=== PATIENT | male | born 1975 | race Caucasian/White ===

== ENCOUNTER 2017-10-04 11:06 | Emergency (ER) | payer BC ==
--- OUTSIDE RECORDS SUMMARY | 2017-10-04 11:14 | XMS REPORT ---
:1975 Author Organization eClinicalWorks Care Team Providers Name Role Phone Roni Lino Provider Role Unavailable Allergies No Known Allergies Problems Problem Type Condition Code Onset Dates Condition Status Problem Primary hypersomnia F51.11 Active Problem Benign essential hypertension I10 Active Problem Tobacco use disorder F17.200 Active Problem Irritability and anger R45.4 Active Problem Left ventricular hypertrophy I51.7 Active Problem Generalized anxiety disorder F41.1 Active Problem Chest pain R07.9 Active Problem Cellulitis L03.90 Active Problem Malaise and fatigue R53.81 Active Problem Gastro-esophageal reflux disease K21.9 Active without esophagitis Assessment Mixed hyperlipidemia E78.2 Active Assessment Uncontrolled type 2 diabetes E11.65 Active mellitus without complication, without long-term current use of insulin Problem Uncontrolled type 2 diabetes E11.65 Active mellitus without complication, without long-term current use of insulin Problem Mixed hyperlipidemia E78.2 Active Medications Medication Code System Code Instructions Start End Date Status Dosage Date Lipitor [facility] 10837732260 20 MG Orally Once Active 1 tablet a day Janumet [facility] 18152620745 50-1000 MG Orally Active 1 tablet Twice a day with meals Jardiance [facility] 71403808171 10 MG Orally Once Active 1 tablet a day Results No Known Results Summary Purpose eClinicalWorks Submission
--- OUTSIDE RECORDS SUMMARY | 2017-10-04 11:14 | XMS REPORT ---
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 Active Problem Benign essential hypertension I10 Active Problem Tobacco use disorder F17.200 Active Problem Irritability and anger R45.4 Active Assessment Decreased libido R68.82 Active Problem Left ventricular hypertrophy I51.7 Active Problem Generalized anxiety disorder F41.1 Active Problem Chest pain R07.9 Active Problem Cellulitis L03.90 Active Problem Malaise and fatigue R53.81 Active Problem Gastro-esophageal reflux disease K21.9 Active without esophagitis Assessment Irritability and anger R45.4 Active Assessment Generalized anxiety disorder F41.1 Active Assessment Tobacco use disorder F17.200 Active Assessment Gastro-esophageal reflux disease K21.9 Active without esophagitis Assessment Uncontrolled type 2 diabetes E11.65 Active mellitus without complication, without long-term current use of insulin Assessment Encounter for preventative adult Z00.01 Active health care exam with abnormal findings Assessment Benign essential hypertension I10 Active Problem Uncontrolled type 2 diabetes E11.65 Active mellitus without complication, without long-term current use of insulin Assessment Mixed hyperlipidemia E78.2 Active Problem Mixed hyperlipidemia E78.2 Active Medications Medication Code Code Instructions Start End Status Dosage System Date Date Metoprolol [facility] 23611890802 50 MG Orally Active 1 tablet Tartrate Twice a day with food Duexis [facility] 65922308915 800-26.6 MG Active 1 tablet Orally Three times a day Sertraline HCl ND 34655507378 50 MG Orally August 28, Active Take 1/2 Once a day 2018 tab QHS x 1 week then 1 tab QHS Amlodipine [facility] 90373795856 5 MG Active TAKE 1 Besylate TABLET BY MOUTH DAILY Jardiance [facility] 01364514882 10 MG Orally Nov 26, Active 1 tablet Once a day 2017 Aspirin 81 [facility] 56544217761 81 MG Orally Active 1 tablet Once a day Lipitor [facility] 81317489535 20 MG Orally Active 1 tablet Once a day BusPIRone HCl [facility] 92786092639 5 MG Orally August 28, Active 1 tablet Twice a day 2017 Pantoprazole [facility] 65826959254 40 MG Active TAKE 1 Sodium TABLET BY MOUTH EVERY MORNING Aprumet [facility] 39031228118 50-1000 MG Active 1 tablet Orally Twice a with meals day Norvasc [facility] 83694006629 5 MG Orally Active 1 [facility] 35042297367 50-1000 MG Active 1 tablet Orally Twice a with meals day Lisinopril [facility] 07898545516 40 MG Active TAKE 1 TABLET BY MOUTH DAILY Metoprolol [facility] 15290571407 50 MG Active TAKE 1 Tartrate TABLET BY MOUTH TWICE DAILY Pantoprazole [facility] 02179812567 40 MG Orally Active 1 tablet Sodium Once a day Results No Known Results Summary Purpose eClinicalWorks Submission
--- OUTSIDE RECORDS SUMMARY | 2017-10-04 11:14 | XMS REPORT ---
:1975 Author Organization eClinicalWorks Care Team Providers Name Role Phone Holland Roni Provider Role Unavailable Allergies No Known Allergies [...] esophagitis Assessment Mixed hyperlipidemia E78.2 Active Assessment Gastro-esophageal reflux disease K21.9 Active without esophagitis Problem Uncontrolled type 2 diabetes E11.65 Active mellitus without complication, without long-term current use of insulin Assessment Benign essential hypertension I10 Active Problem Mixed hyperlipidemia E78.2 Active Medications Medication Code Code Instructions Start End Status Dosage System Date Date Norvasc [facility] 52461178645 5 MG Orally Once Active 1 tablet a day Lisinopril [facility] 26055136808 40 MG Orally Active TAKE 1 Once a day TABLET BY MOUTH DAILY Metoprolol [facility] 76755980059 50 MG Orally Active 1 tablet Tartrate Twice a day with food Pantoprazole [facility] 39335888593 40 MG Orally Active 1 tablet Sodium Once a day Results No Known Results Summary Purpose eClinicalWorks Submission
--- OUTSIDE RECORDS SUMMARY | 2017-10-04 11:15 | XMS REPORT ---
[...] Active Assessment Generalized anxiety disorder F41.1 Active Problem Uncontrolled type 2 diabetes E11.65 Active mellitus without complication, without long-term current use of insulin Problem Mixed hyperlipidemia E78.2 Active Medications Medication Code Code Instructions Start End Status Dosage System Date Date Pantoprazole [facility] 40086767047 40 MG Active TAKE 1 Sodium TABLET BY MOUTH EVERY MORNING Aspirin [address] [facility] 16406807301 81 MG Orally Active 1 tablet Once a day Jardiance [facility] 41966350455 10 MG Orally Active 1 tablet Once a day Lipitor [facility] [address]-22 20 MG Active 1 tablet Once a day Orally 30 days BusPIRone HCl [facility] 10447140716 5 MG Orally Inactive 1 tablet Twice a day Duexis [facility] 04033598806 800-26.6 MG Active 1 tablet Orally Three times a day Metoprolol [facility] 01662762185 50 MG Active TAKE 1 Tartrate TABLET BY MOUTH TWICE DAILY Sertraline HCl [facility] 69140342579 50 MG Orally Inactive Take 1/2 Once a day tab QHS x 1 week then 1 tab QHS Janumet [facility] 19023134006 50-1000 MG Active 1 tablet Orally Twice a with day meals Lisinopril [facility] 37894684535 40 MG Orally Active TAKE 1 Once a day TABLET BY MOUTH DAILY Escitalopram [facility] 07127328452 10 MG Orally October 01, Active 1 tablet Oxalate Once a day [address] [facility] 72784133222 5 MG Active TAKE 1 Besylate TABLET BY MOUTH DAILY Results No Known Results Summary Purpose eClinicalWorks Submission
[2017-10-04] MEDS ORDERED: LORazepam 2 MG/ML VIAL ONE (11:28)
[2017-10-04] MEDS ORDERED: NA CHLORIDE 0.9% 1,000 ML ONE (11:28)
--- NOTE | 2017-10-04 12:24 | RAD REPORT ---
EXAM DESCRIPTION: RAD - Chest Single View - 10/04/2017 12:17 pm CLINICAL HISTORY: CHEST PAIN Chest pain. COMPARISON: Chest Single View dated 11/11/2016 FINDINGS: Portable technique limits examination quality. The lungs are grossly clear. The heart is normal in size. No displaced fractures. IMPRESSION: No acute intrathoracic process suspected.
[2017-10-04 12:26] LABS: Absolute Lymphocytes (CBC) 1.9 K/uL (0.7-4.9); Absolute Monocytes 0.6 K/uL (0.1-1.3); Absolute Neutrophil 10.2 K/uL (1.8-8.0); Basophils % 0.6 % (0-1.3); Eosinophils % 0.2 % (0-4.4); Hematocrit 45.6 % (39.6-49.0); Lymphocytes % 14.6 % (15.3-44.8); MCH 30.4 pg (27.0-35.0); MCV 89.2 fL (80-100); MPV 7.7 fL (7.6-11.3); Monocytes % 4.5 % (3.3-12.3); RBC Red Blood Cell Count 5.11 M/uL (4.33-5.43)
[2017-10-04 12:31] LABS: Protime INR 1.02
[2017-10-04 12:50] LABS: Magnesium 2.2 mg/dL (1.8-2.4); Potassium 4.1 mmol/L (3.5-5.1)
--- NOTE | 2017-10-04 13:02 | ER ---
Nurse's Notes [facility] Name: Baldemar Lujan Age: 42 yrs Sex: Male : 1975 Arrival Date: 10/04/2017 Time: 11:10 Bed 17 Private MD: Roni Lino Diagnosis: Panic disorder [episodic paroxysmal anxiety] without agoraphobia Presentation: 10/04 11:12 Presenting complaint: Patient states: was driving and started feeling weak, heart sv fluttering, body hot, chest tightness that lasted for a little bit and went away. All these symptoms have occurred 4 times since they started around 0900 today. Pt reported that he took a 5 hour energy drink this morning and did not take his morning HTN medications til about 45 minutes ago. Transition of care: patient was not received from another setting of care. Onset of symptoms was October 04, 2017 at 09:00. Risk Assessment: Do you want to hurt yourself or someone else? Patient reports no desire to harm self or others. Care prior to arrival: None. 11:12 Method Of Arrival: Wheelchair sv 11:12 Acuity: PHYLLIS 3 sv Historical: - Allergies: 11:21 No Known Allergies; sv - Home Meds: 11:21 Lisinopril Oral [Active]; Jardiance oral oral [Active]; Aspirin Oral [Active]; Duexis sv oral oral [Active]; Metoprolol Tartrate Oral [Active]; amlodipine oral [Active]; Protonix Oral [Active]; Janumet oral oral [Active]; Lipitor Oral [Active]; - PMHx: 11:21 Hypertension; Diabetes - NIDDM; sv - PSHx: 11:21 None; sv - Immunization history:: Adult Immunizations up to date. - Social history:: Smoking status: Patient uses tobacco products, smokes one-half pack cigarettes per day, Patient uses alcohol, occasionally. - Ebola Screening: : No symptoms or risks identified at this time. Vital Signs: 11:21 BP 162 / 102; Pulse 68; Resp 20; Temp 97.3; Pulse Ox 96% ; Weight 127.01 kg; Height 6 sv ft. 2 in. (187.96 cm); 11:21 Body Mass Index 35.95 (127.01 kg, 187.96 cm) sv ED Course: 11:10 Patient arrived in ED. mr 11:10 Roni Lino DO is Private Physician. mr 11:12 Patient placed in an exam room, on a stretcher, on pulse oximetry. sv 11:13 Fortino Sorto PA is PHCP. jr8 11:13 Scotty Villar MD is Attending Physician. jr8 11:20 Triage completed. sv 11:22 Feliberto Eldridge, RN is Primary Nurse. sg 11:22 Arm band placed on right wrist. sv 11:44 Initial lab(s) drawn, by me, sent to lab. Inserted saline lock: 20 gauge in right mh5 antecubital area, using aseptic technique. Patient did not have IV access during this emergency room visit. Pressure dressing applied. 11:45 Patient has correct armband on for positive identification. Placed in gown. Bed in low mh5 position. Call light in reach. Side rails up X 1. Adult w/ patient. Warm blanket given. clinical research monitor on. Pulse ox on. NIBP on. 11:49 EKG done, by geotechnical engineering technician. reviewed by Fortino RAZA. at1 11:49 Inserted saline lock: 20 gauge in left antecubital area, using aseptic technique. sg 12:17 XRAY Chest (1 view) In Process Unspecified. EDMS 13:01 Roni Lino DO is Referral Physician. jr8 Administered Medications: 11:49 Drug: NS 0.9% 1000 ml Route: IV; Rate: 1000 ml; Site: left antecubital; sg 13:31 Follow up: Response: No adverse reaction; IV Status: Completed infusion; IV Intake: sg 990ml 11:49 Drug: Ativan 2 mg Route: IVP; Site: left antecubital; sg Intake: 13:31 IV: 990ml; Total: 990ml. sg Outcome: 13:01 Discharge ordered by . jr8 13:31 Patient left the ED. sg Signatures: Dispatcher [employer] EDWA Roula Kohli RN RN sv Gay, Steven, EDUAR RN Loreto Platt mr Fortino Sorto PA PA jrTeri dawn, supervisor ski production EKG [facility] Loreto Sinha [facility] Corrections: (The following items were deleted from the chart) 11:22 11:12 Patient placed in an exam room, on a stretcher, sv sv
--- NOTE | 2017-10-04 13:02 | EDPHYS ---
Physician Documentation [facility] Name: Baldemar Lujan Age: 42 yrs Sex: Male : 1975 Arrival Date: 10/04/2017 Time: 11:10 Bed 17 Private MD: [facility] ED Physician Scotty Villar HPI: 10/04 11:44 This 42 yrs old Male presents to ER via Wheelchair with complaints of jr8 Dizziness. 11:44 The patient presents with lightheadedness. Onset: The symptoms/episode began/occurred jr8 acutely, today. Context: occurred on a street or driveway, occurred while the patient was driving . Modifying factors: The symptoms are alleviated by nothing, the symptoms are aggravated by nothing. Associated signs and symptoms: Pertinent positives: sense of anxiety, hot flashes . Severity of symptoms: At their worst the symptoms were moderate in the emergency department the symptoms are unchanged. The patient has not experienced similar symptoms in the past. The patient has not recently seen a physician. Patient stated that he had a 5 hour energy drink this morning. Stated that he has had one before and had not done this in past. Cannot think of anything else different that would have caused this today. Stated that he is anxious, is having hot flashes, sweating, and palpitative feeling along with shortness of breath. Had recent change in medications for anxiety as well . Historical: - Allergies: 11:21 No Known Allergies; sv - Home Meds: 11:21 Lisinopril Oral [Active]; Jardiance oral oral [Active]; Aspirin Oral [Active]; Duexis sv oral oral [Active]; Metoprolol Tartrate Oral [Active]; amlodipine oral [Active]; Protonix Oral [Active]; Janumet oral oral [Active]; Lipitor Oral [Active]; - PMHx: 11:21 Hypertension; Diabetes - NIDDM; sv - PSHx: 11:21 None; sv - Immunization history:: Adult Immunizations up to date. - Social history:: Smoking status: Patient uses tobacco products, smokes one-half pack cigarettes per day, Patient uses alcohol, occasionally. - Ebola Screening: : No symptoms or risks identified at this time. ROS: 11:44 Eyes: Negative for injury, pain, redness, and discharge, ENT: Negative for injury, jr8 pain, and discharge, Neck: Negative for injury, pain, and swelling, Abdomen/GI: Negative for abdominal pain, nausea, vomiting, diarrhea, and constipation, Back: Negative for injury and pain, MS/Extremity: Negative for injury and deformity, Skin: Negative for injury, rash, and discoloration, Neuro: Negative for headache, weakness, numbness, tingling, and seizure. 11:44 Cardiovascular: Positive for palpitations, Negative for chest pain, edema, orthopnea, paroxysmal nocturnal dyspnea. 11:44 Respiratory: Positive for shortness of breath, Negative for cough, dyspnea on exertion, hemoptysis, orthopnea, pleurisy, sputum production, wheezing. 11:44 Psych: Positive for anxiety. jr8 Exam: 11:44 Eyes: Pupils equal round and reactive to light, extra-ocular motions intact. Lids and jr8 lashes normal. Conjunctiva and sclera are non-icteric and not injected. Cornea within normal limits. Periorbital areas with no swelling, redness, or edema. ENT: Nares patent. No nasal discharge, no septal abnormalities noted. Tympanic membranes are normal and external auditory canals are clear. Oropharynx with no redness, swelling, or masses, exudates, or evidence of obstruction, uvula midline. Mucous membranes moist. Neck: Trachea midline, no thyromegaly or masses palpated, and no cervical lymphadenopathy. Supple, full range of motion without nuchal rigidity, or vertebral point tenderness. No Meningismus. Cardiovascular: Regular rate and rhythm with a normal S1 and S2. No gallops, murmurs, or rubs. Normal PMI, no JVD. No pulse deficits. Respiratory: Lungs have equal breath sounds bilaterally, clear to auscultation and percussion. No rales, rhonchi or wheezes noted. No increased work of breathing, no retractions or nasal flaring. Abdomen/GI: Soft, non-tender, with normal bowel sounds. No distension or tympany. No guarding or rebound. No evidence of tenderness throughout. Back: No spinal tenderness. No costovertebral tenderness. Full range of motion. Skin: Warm, dry with normal turgor. Normal color with no rashes, no lesions, and no evidence of cellulitis. MS/ Extremity: Pulses equal, no cyanosis. Neurovascular intact. Full, normal range of motion. Neuro: Awake and alert, GCS 15, oriented to person, place, time, and situation. Cranial nerves II-XII grossly intact. Motor strength 5/5 in all extremities. Sensory grossly intact. Cerebellar exam normal. Normal gait. 11:44 Constitutional: The patient appears alert, awake, anxious, diaphoretic. Vital Signs: 11:21 BP 162 / 102; Pulse 68; Resp 20; Temp 97.3; Pulse Ox 96% ; Weight 127.01 kg; Height 6 sv ft. 2 in. (187.96 cm); 11:21 Body Mass Index 35.95 (127.01 kg, 187.96 cm) sv MDM: 11:13 Patient medically screened. 12:59 Data reviewed: vital signs, nurses notes, lab test result(s), EKG, radiologic studies, [facility] plain films, and as a result, I will discharge patient. Data interpreted: Pulse oximetry: on room air is 96 %. Interpretation: normal. Counseling: I had a detailed discussion with the patient and/or guardian regarding: the historical points, exam findings, and any diagnostic results supporting the discharge/admit diagnosis, lab results, radiology results, the need for outpatient follow up, a family practitioner, to return to the emergency department if symptoms worsen or persist or if there are any questions or concerns that arise at home. Response to treatment: the patient's symptoms have resolved after treatment. ED course: All symptoms resolved after the ativan. Explained to patient that his symptoms were compatible with acute panic attack. All other cardiac and other labs within normal limits. To f/u with his PCP. More then likely stimulated from the 5 hour energy drink he had today. Patient is good with this and will follow up . 10/04 11:24 Order name: Basic Metabolic Panel 10/04 11:24 Order name: CBC with Diff 10/04 11:24 Order name: Magnesium 10/04 11:24 Order name: PT-INR; Complete Time: 12:48 10/04 11:24 Order name: Troponin (emerg Dept Use Only); Complete Time: 12:59 10/04 11:24 Order name: Basic Metabolic Panel; Complete Time: 12:50 EDMS 10/04 11:24 Order name: XRAY Chest (1 view); Complete Time: 12:48 10/04 11:24 Order name: EKG; Complete Time: 11:24 [facility] 10/04 11:24 Order name: CBC with Automated Diff; Complete Time: 12:48 EDMS 10/04 11:24 Order name: Magnesium; Complete Time: 12:50 EDMS 10/04 12:59 Order name: Urine Dipstick--Ancillary (enter results) bd 10/04 13:00 Order name: Urine Dipstick-Ancillary; Complete Time: 13:18 EDMS 10/04 11:24 Order name: Cardiac monitoring; Complete Time: 11: [facility] 10/04 11:24 Order name: EKG - Nurse/Tech; Complete Time: 13: [facility] 10/04 11:24 Order name: IV Saline Lock; Complete Time: 11: [facility] 10/04 11:24 Order name: Labs collected and sent; Complete Time: : [facility] 10/04 11:24 Order name: O2 Per Protocol; Complete Time: : [facility] 10/04 11:24 Order name: O2 Sat Monitoring; Complete Time: : [facility] 10/04 11:24 Order name: Urine Dipstick-Ancillary (obtain specimen); Complete Time: : [facility] 10/04 11:52 Order name: Labs - recollect needed; Complete Time: 12:30 bd Administered Medications: 11:49 Drug: NS 0.9% 1000 ml Route: IV; Rate: 1000 ml; Site: left antecubital; sg 13:31 Follow up: Response: No adverse reaction; IV Status: Completed infusion; IV Intake: sg 990ml 11:49 Drug: Ativan 2 mg Route: IVP; Site: left antecubital; sg Disposition: 16:36 Co-signature as Attending Physician, Scotty Villar MD. rn Disposition: 10/04/17 13:01 Discharged to Home. Impression: Panic disorder [episodic paroxysmal anxiety] without agoraphobia. - Condition is Stable. - Discharge Instructions: Panic Attacks. - Prescriptions for Hydroxyzine HCl 50 mg Oral Tablet - take 1 tablet by ORAL route every 8 hours As needed; 20 tablet. - Medication Reconciliation Form, Thank You Letter, Antibiotic Education, Prescription Opioid Use form. - Follow up: Roni Lino DO; When: 2 - 3 days; Reason: Recheck today's complaints, Continuance of care, Re-evaluation by your physician. - Problem is new. - Symptoms are resolved. Signatures: Dispatcher [employer] EDMS Whitney Aviles Roula Rubin RN RN sv Gay, Steven, RN RN sg Nieto, Roman, MD MD rn Roszak, Josh, PA PA jr8 Corrections: (The following items were deleted from the chart) 13:31 13:01 10/04/2017 13:01 Discharged to Home. Impression: Panic disorder [episodic sg paroxysmal anxiety] without agoraphobia. Condition is Stable. Forms are Medication Reconciliation Form, Thank You Letter, Antibiotic Education, Prescription Opioid Use. Follow up: Roni Lino; When: 2 - 3 days; Reason: Recheck today's complaints, Continuance of care, Re-evaluation by your physician. Problem is new. Symptoms are resolved. jr8
[2017-10-04 13:05] LABS: Urine Blood NEGATIVE (NEG); Urine Glucose TRACE (NEG); Urine Protein NEGATIVE (NEG); Urine Specific Gravity <1.005 (1.005-1.030); Urine pH 6.5 (5.0-7.0)
[2017-10-04 14:04] VITALS: BP 162/102; TEMP 97.3; O2SAT 96
--- NOTE | 2017-10-04 17:32 | EKG ---
Test Date: 2017-10-04 Test Time: 11:45:15 Plate Put In Worker: CHRIS MEASUREMENT RESULTS: Intervals: Rate: 62 ID: [id number] QRSD: 92 QT: 390 QTc: 395 [place]: P: 19 ID: [id number] QRS: 39 T: 43 INTERPRETIVE STATEMENTS: Normal sinus rhythm Normal ECG Compared to ECG 11/11/2016 22:53:16 No significant changes Electronically Signed On 10-04-17 17:30:59 CDT by Aram Rodriguez
== END 2017-10-04 13:31 | disposition home or self-care (01) ==
LOC: ER 11:06
DX: F41.0 Panic disorder [episodic paroxysmal anxiety] (principal); I10 Essential (primary) hypertension; E11.9 Type 2 diabetes mellitus without complications; F17.210 Nicotine dependence, cigarettes, uncomplicated; Z79.82 Long term (current) use of aspirin
CPT/HCPCS: 36415; 71045; 80048; 81003; 83735; 84484; 85025; 85610; 93005; 96361; 96374; 99284; J7030

== ENCOUNTER 2018-01-06 09:02 | Emergency (ER) | payer BC ==
[2018-01-06] MEDS ORDERED: FAMOTIDINE 20 MG/2 ML VIAL IV ONE (09:33)
[2018-01-06] MEDS ORDERED: ASPIRIN 81 MG CHEWABLE TABLET ONE (09:33)
[2018-01-06] MEDS ORDERED: METOPROLOL TAR 50 MG TAB ONE (09:33)
[2018-01-06 09:47] LABS: Absolute Lymphocytes (CBC) 3.5 K/uL (0.7-4.9); Absolute Neutrophil 9.6 K/uL (1.8-8.0); Basophils % 0.5 % (0-1.3); Eosinophils % 1.1 % (0-4.4); Hematocrit 46.9 % (39.6-49.0); Lymphocytes % 24.6 % (15.3-44.8); MCH 32.6 pg (27.0-35.0); MCV 91.8 fL (80-100); MPV 7.7 fL (7.6-11.3); Monocytes % 6.9 % (3.3-12.3); RBC Red Blood Cell Count 5.11 M/uL (4.33-5.43)
[2018-01-06 09:48] LABS: Protime INR 0.96
--- NOTE | 2018-01-06 09:58 | RAD REPORT ---
EXAM DESCRIPTION: RAD - Chest Single View - 01/06/2018 9:53 am CLINICAL HISTORY: Left-sided chest pain COMPARISON: September 2017 TECHNIQUE: AP portable chest image was obtained 0928 hours . FINDINGS: Lungs are clear. Heart and vasculature are normal. No measurable pleural effusion and no p neumothorax. No gross bony abnormality seen. No acute aortic findings suspected. IMPRESSION: No acute cardiopulmonary process. No acute cardiopulmonary finding.
[2018-01-06 10:02] LABS: ALT/SGPT 49 U/L (12-78); AST/SGOT 20 U/L (15-37); Albumin 3.9 g/dL (3.4-5.0); Alkaline Phosphatase 76 U/L (45-117); BUN Blood Urea Nitrogen 15 mg/dL (7-18); Bicarbonate 27 mmol/L (21-32); Bilirubin Direct 0.1 mg/dL (0-0.2); Bilirubin Total 0.3 mg/dL (0.2-1.0); Glucose Level 134 mg/dL (74-106); Lipase 307 U/L (73-393); Magnesium 2.2 mg/dL (1.8-2.4); NT PRO-BNP 8 pg/mL (<125); Potassium 4.7 mmol/L (3.5-5.1); Protein, Total 7.3 g/dL (6.4-8.2); Sodium Level 139 mmol/L (136-145); Troponin (Emerg Dept Use Only) < 0.02 ng/mL (0.0-0.045)
--- NOTE | 2018-01-06 10:55 | RAD REPORT ---
EXAM DESCRIPTION: CT - Chest For Pe Angio - 01/06/2018 10:38 am CLINICAL HISTORY: Chest pain, dyspnea COMPARISON: Chest films same date TECHNIQUE: Dynamically enhanced 3 mm thick images of the chest were obtained during administration o f approximately 150mL Isovue 370 IV contrast. Coronal and oblique MIP reconstruction images were gene rated and reviewed. Exam utilizes a protocol to evaluate the pulmonary arterial tree. All CT scans are performed using dose optimization technique as appropriate and may include automated exposure control or mA/KV adjustment according to patient size. FINDINGS: No pulmonary emboli are identified. Far peripheral subsegmental branch assessment is limit ed by motion. Likelihood of pulmonary embolic disease is felt to be low. The aorta as imaged shows no acute or suspicious finding. No pericardial thickening or effusion. No infiltrate or mass in the lung parenchyma. No pleural effusion or pleural thickening. No mediastinal or hilar suspicious masses. No chest wall masses or abnormal axillary lymphadenopathy. Limited upper abdomen imaging shows fatty infiltration of a prominent sized liver. Only a portion of the liver is seen. IMPRESSION: No pulmonary emboli identified. No suspicious lung parenchymal process. Fatty infiltration of a partially imaged liver.
[2018-01-06] MEDS ORDERED: AZITHROMYCIN 250 MG TAB ONE (11:29)
[2018-01-06] MEDS ORDERED: CEFTRIAXONE/SWI 1gm 1 GM/10 ML SYR ONE (11:29)
--- NOTE | 2018-01-06 11:48 | EKG ---
Test Date: 2018-01-06 Test Time: 09:25:03 Patrol Police Sergeant: CHRIS MEASUREMENT RESULTS: Intervals: Rate: 70 MA: 136 QRSD: 100 QT: 376 QTc: 406 [place]: P: 42 MA: 136 QRS: 120 T: 101 INTERPRETIVE STATEMENTS: Normal sinus rhythm Right axis deviation Abnormal ECG Compared to ECG 10/04/2017 11:45:15 Right-axis deviation now present QRS axis change is likely due to arm lead reversal, recommend repeat ECG Electronically Signed On 01-06-18 11:48:07 CDT by Derik Araiza
--- NOTE | 2018-01-06 12:03 | ER ---
Nurse's Notes [facility] Name: Baldemar Lujan Age: 42 yrs Sex: Male : 1975 Arrival Date: 01/06/2018 Time: 09:05 Bed 6 Private MD: Roni Lino Diagnosis: Essential (primary) hypertension;Type 2 diabetes mellitus;Pleurisy;Dyspnea;Tobacco abuse counseling;Tobacco use;Bronchitis, not specified as acute or chronic Presentation: 01/06 09:07 Presenting complaint: Patient states: left-sided chest pain that began last night "when aa5 breathing in". Pt also reports SOB. Denies nausea, vomiting. 09:07 Transition of care: patient was not received from another setting of care. Onset of aa5 symptoms was December 2017. Risk Assessment: Do you want to hurt yourself or someone else? Patient reports no desire to harm self or others. Initial Sepsis Screen: Does the patient meet any 2 criteria? No. Patient's initial sepsis screen is negative. Does the patient have a suspected source of infection? No. Patient's initial sepsis screen is negative. Care prior to arrival: None. 09:07 Method Of Arrival: Ambulatory aa5 09:07 Acuity: PHYLLIS 3 aa5 Historical: - Allergies: 09:08 No Known Allergies; aa5 - Home Meds: 09:36 amlodipine oral [Active]; Aspirin Oral [Active]; Duexis Oral [Active]; Jardiance Oral hb [Active]; Lipitor Oral [Active]; lisinopril 40 mg Oral tab 1 tab once daily [Active]; Metoprolol Tartrate Oral [Active]; Protonix Oral [Active]; Metformin Oral [Active]; - PMHx: 09:08 Diabetes - NIDDM; Hypertension; aa5 - PSHx: 09:08 None; aa5 - Immunization history:: Adult Immunizations up to date. - Social history:: Smoking status: Patient uses tobacco products, smokes one pack cigarettes per day. - Ebola Screening: : No symptoms or risks identified at this time. - Family history:: not pertinent. Screenin:30 Abuse screen: Denies threats or abuse. Denies injuries from another. Nutritional hb screening: No deficits noted. Tuberculosis screening: No symptoms or risk factors identified. Fall Risk None identified. Assessment: 09:30 General: Appears in no apparent distress. Behavior is calm, cooperative. Pain: hb Complains of pain in anterior aspect of left upper chest Pain does not radiate. Pain currently is 2 out of 10 on a pain scale. at worst was 8 out of 10 on a pain scale. Quality of pain is described as sharp, stabbing, Pain began suddenly, 3 hours ago. Aggravated by deep breath. Neuro: Level of Consciousness is awake, alert, obeys commands, Oriented to person, place, time, situation. Cardiovascular: Heart tones S1 S2 present Capillary refill < 3 seconds Patient's skin is warm and dry. Respiratory: Airway is patent Trachea midline Respiratory effort is even, unlabored, Respiratory pattern is regular, symmetrical, Breath sounds are clear bilaterally. GI: No signs and/or symptoms were reported involving the gastrointestinal system. : No signs and/or symptoms were reported regarding the genitourinary system. EENT: No signs and/or symptoms were reported regarding the EENT system. Derm: Skin is intact, is healthy with good turgor, Skin is pink, warm \\T\\ dry. Musculoskeletal: No signs and/or symptoms reported regarding the musculoskeletal system. 10:30 Reassessment: Patient appears in no apparent distress at this time. No changes from hb previously documented assessment. Patient and/or family updated on plan of care and expected duration. Pain level reassessed. Patient is alert, oriented x 3, equal unlabored respirations, skin warm/dry/pink. 11:20 Reassessment: repeat trop sent. hb 11:27 Reassessment: Patient appears in no apparent distress at this time. No changes from hb previously documented assessment. Patient and/or family updated on plan of care and expected duration. Pain level reassessed. Patient is alert, oriented x 3, equal unlabored respirations, skin warm/dry/pink. Vital Signs: 09:10 BP 148 / 86; Pulse 71; Resp 18 S; Temp 97.8(O); Pulse Ox 96% on R/A; Weight 127.01 kg aa5 (R); Height 6 ft. 2 in. (187.96 cm) (R); Pain 6/10; 10:00 BP 129 / 82; Pulse 66; Resp 15; Pulse Ox 100% on R/A; hb 11:15 BP 128 / 77; Pulse 77; Resp 15; Pulse Ox 98% on R/A; hb 09:10 Body Mass Index 35.95 (127.01 kg, 187.96 cm) aa5 ED Course: 09:05 Patient arrived in ED. mr 09:06 Roni Lino DO is Private Physician. mr 09:07 Arm band placed on Patient placed in an exam room, on a stretcher. aa5 09:15 Rolly Daugherty MD is Attending Physician. scarlett 09:16 Triage completed. aa5 09:19 Juanita Booth, RN is Primary Nurse. hb 09:25 Missed attempt(s): 20 gauge in right antecubital area. Bleeding controlled, band aid hb applied, catheter tip intact. 09:30 Patient has correct armband on for positive identification. Placed in gown. Bed in low hb position. Call light in reach. Side rails up X 1. brick siding applicator on. Pulse ox on. NIBP on. 09:30 Patient maintains SpO2 saturation greater than 95% on room air. hb 09:32 Inserted saline lock: 20 gauge in left antecubital area, using aseptic technique. Blood hb collected. 09:39 X-ray completed. Portable x-ray completed in exam room. Patient tolerated procedure ml well. 09:41 XRAY Chest (1 view) In Process Unspecified. EDMS 10:34 CT completed. Patient tolerated procedure well. Patient moved to CT via stretcher. sj Patient moved back from CT. 10:39 CT Chest For PE Angio In Process Unspecified. EDMS 11:20 Troponin (emerg Dept Use Only): draw now Sent. hb 12:00 EKG done, by technical systems architect. reviewed by Rolly Daugherty MD Repeat EKG. at1 12:02 Roni Lino DO is Referral Physician. scarlett 12:02 Aram Rodriguez MD is Referral Physician. scarlett 12:30 No provider procedures requiring assistance completed. IV discontinued, intact, hb bleeding controlled, No redness/swelling at site. Pressure dressing applied. Administered Medications: 09:32 Drug: Aspirin Chewable Tablet 324 mg Route: PO; tw2 10:35 Follow up: Response: No adverse reaction hb 09:32 Drug: Lopressor (metoprolol TARTRATE) 50 mg Route: PO; tw2 10:05 Follow up: Response: No adverse reaction; Blood pressure is lowered hb 09:35 Drug: Pepcid 20 mg Route: IVP; Site: left antecubital; tw2 10:00 Follow up: Response: No adverse reaction hb 11:26 Drug: Rocephin - (cefTRIAXone) 1 grams Route: IVPB; Infused Over: 30 mins; Site: left hb antecubital; 12:00 Follow up: Response: No adverse reaction; IV Status: Completed infusion hb 11:26 Drug: Zithromax 500 mg Route: PO; hb 12:00 Follow up: Response: No adverse reaction hb Outcome: 12:02 Discharge ordered by . scarlett 12:30 Discharged to home ambulatory, with significant other. hb 12:30 Condition: stable 12:30 Discharge instructions given to patient, family, Instructed on discharge instructions, follow up and referral plans. medication usage, Demonstrated understanding of instructions, follow-up care, medications, Prescriptions given X 2. 12:37 Patient left the ED. iw Signatures: Dispatcher [employer] EDMS Rolly Daugherty MD MD cha Rivera, Maria mr Gianluca, Tiffany Thomason, RN Ellen Christy Audri RN RN aa5 Teri Shah, linux network administrator EKG Tat1 Juanita Booth RN RN Ashlie Dueñas RN RN tw2
--- NOTE | 2018-01-06 12:03 | EDPHYS ---
Physician Documentation [facility] Name: Baldemar Lujan Age: 42 yrs Sex: Male : 1975 Arrival Date: 01/06/2018 Time: 09:05 Bed 6 Private MD: [facility] ED Physician Rolly Daugherty HPI: 01/06 10:21 This 42 yrs old Male presents to ER via Ambulatory with complaints of Chest scarlett Pain. 10:21 The patient or guardian reports chest pain that is located primarily in the substernal scarlett area. Onset: 1 day(s) ago. The pain does not radiate. Associated signs and symptoms: The patient has no apparent associated signs or symptoms. The chest pain is described as sharp. Duration: The patient or guardian reports multiple episodes, that are intermittent. Modifying factors: The symptoms are alleviated by nothing. the symptoms are aggravated by deep breath. Severity of pain: At its worst the pain was mild moderate in the emergency department the pain is unchanged. The patient has not experienced similar symptoms in the past. Historical: - Allergies: 09:08 No Known Allergies; aa5 - Home Meds: 09:36 amlodipine oral [Active]; Aspirin Oral [Active]; Duexis Oral [Active]; Jardiance Oral hb [Active]; Lipitor Oral [Active]; lisinopril 40 mg Oral tab 1 tab once daily [Active]; Metoprolol Tartrate Oral [Active]; Protonix Oral [Active]; Metformin Oral [Active]; - PMHx: 09:08 Diabetes - NIDDM; Hypertension; aa5 - PSHx: 09:08 None; aa5 - Immunization history:: Adult Immunizations up to date. - Social history:: Smoking status: Patient uses tobacco products, smokes one pack cigarettes per day. - Ebola Screening: : No symptoms or risks identified at this time. - Family history:: not pertinent. ROS: 10:21 Constitutional: Negative for fever, chills, and weight loss, Eyes: Negative for injury, scarlett pain, redness, and discharge, ENT: Negative for injury, pain, and discharge, Neck: Negative for injury, pain, and swelling, Cardiovascular: Negative for chest pain, palpitations, and edema, Respiratory: Negative for shortness of breath, cough, wheezing, and pleuritic chest pain, Abdomen/GI: Negative for abdominal pain, nausea, vomiting, diarrhea, and constipation, Back: Negative for injury and pain, : Negative for injury, bleeding, discharge, and swelling, MS/Extremity: Negative for injury and deformity, Skin: Negative for injury, rash, and discoloration, Neuro: Negative for headache, weakness, numbness, tingling, and seizure, Psych: Negative for depression, anxiety, suicide ideation, homicidal ideation, and hallucinations, Allergy/Immunology: Negative for hives, rash, and allergies, Endocrine: Negative for neck swelling, polydipsia, polyuria, polyphagia, and marked weight changes, Hematologic/Lymphatic: Negative for swollen nodes, abnormal bleeding, and unusual bruising. 10:21 MS/extremity: Negative for acute changes. Exam: 10:21 Constitutional: This is a well developed, well nourished patient who is awake, alert, scarlett and in no acute distress. Head/Face: Normocephalic, atraumatic. Eyes: Pupils equal round and reactive to light, extra-ocular motions intact. Lids and lashes normal. Conjunctiva and sclera are non-icteric and not injected. Cornea within normal limits. Periorbital areas with no swelling, redness, or edema. ENT: Nares patent. No nasal discharge, no septal abnormalities noted. Tympanic membranes are normal and external auditory canals are clear. Oropharynx with no redness, swelling, or masses, exudates, or evidence of obstruction, uvula midline. Mucous membranes moist. Neck: Trachea midline, no thyromegaly or masses palpated, and no cervical lymphadenopathy. Supple, full range of motion without nuchal rigidity, or vertebral point tenderness. No Meningismus. Chest/axilla: Normal chest wall appearance and motion. Nontender with no deformity. No lesions are appreciated. Cardiovascular: Regular rate and rhythm with a normal S1 and S2. No gallops, murmurs, or rubs. Normal PMI, no JVD. No pulse deficits. Respiratory: Lungs have equal breath sounds bilaterally, clear to auscultation and percussion. No rales, rhonchi or wheezes noted. No increased work of breathing, no retractions or nasal flaring. Abdomen/GI: Soft, non-tender, with normal bowel sounds. No distension or tympany. No guarding or rebound. No evidence of tenderness throughout. Back: No spinal tenderness. No costovertebral tenderness. Full range of motion. Skin: Warm, dry with normal turgor. Normal color with no rashes, no lesions, and no evidence of cellulitis. MS/ Extremity: Pulses equal, no cyanosis. Neurovascular intact. Full, normal range of motion. Neuro: Awake and alert, GCS 15, oriented to person, place, time, and situation. Cranial nerves II-XII grossly intact. Motor strength 5/5 in all extremities. Sensory grossly intact. Cerebellar exam normal. Normal gait. Psych: Awake, alert, with orientation to person, place and time. Behavior, mood, and affect are within normal limits. 10:21 Musculoskeletal/extremity: DVT Exam: No signs of deep vein thrombosis. no pain, no swelling, no tenderness, negative Homans' sign noted on exam, no appreciated bluish discoloration, no erythema, no increased warmth. 12:01 Musculoskeletal/extremity: no homans, no cords. no trauma, no stasis, no hc state. [facility] Vital Signs: 09:10 BP 148 / 86; Pulse 71; Resp 18 S; Temp 97.8(O); Pulse Ox 96% on R/A; Weight 127.01 kg aa5 (R); Height 6 ft. 2 in. (187.96 cm) (R); Pain 6/10; 10:00 BP 129 / 82; Pulse 66; Resp 15; Pulse Ox 100% on R/A; hb 11:15 BP 128 / 77; Pulse 77; Resp 15; Pulse Ox 98% on R/A; hb 09:10 Body Mass Index 35.95 (127.01 kg, 187.96 cm) aa5 MDM: 09:15 Patient medically screened. [facility] 10:23 Data reviewed: vital signs, nurses notes, lab test result(s), EKG, radiologic studies, [facility] CT scan, plain films. 01/06 09:24 Order name: Basic Metabolic Panel; Complete Time: 10:20 [facility] 01/06 09:24 Order name: CBC with Diff; Complete Time: 10:20 [facility] 01/06 09:24 Order name: LFT's; Complete Time: 10:20 [facility] 01/06 09:24 Order name: Magnesium; Complete Time: 10:20 [facility] 01/06 09:24 Order name: NT PRO-BNP; Complete Time: 10:20 [facility] 01/06 09:24 Order name: PT-INR; Complete Time: 10:20 [facility] 01/06 09:24 Order name: Troponin (emerg Dept Use Only); Complete Time: 10:20 [facility] 01/06 09:24 Order name: XRAY Chest (1 view); Complete Time: 10:20 [facility] 01/06 09:24 Order name: Lipase; Complete Time: 10:20 [facility] 01/06 10:20 Order name: Blood Culture Adult (2) [facility] 01/06 10:20 Order name: CT Chest For PE Angio; Complete Time: 11:01 [facility] 01/06 10:34 Order name: Urine Dipstick--Ancillary (enter results) 01/06 11:01 Order name: Troponin (emerg Dept Use Only): draw now; Complete Time: 12:00 [facility] 01/06 09:24 Order name: EKG; Complete Time: 09:25 [facility] 01/06 09:24 Order name: Cardiac monitoring; Complete Time: 10:38 [facility] 01/06 09:24 Order name: EKG - Nurse/Tech; Complete Time: 10:38 [facility] 01/06 09:24 Order name: IV Saline Lock; Complete Time: 10:38 [facility] 01/06 09:24 Order name: Labs collected and sent; Complete Time: 10:38 [facility] 01/06 09:24 Order name: O2 Per Protocol; Complete Time: 10:38 [facility] 01/06 09:24 Order name: O2 Sat Monitoring; Complete Time: 10:38 [facility] 01/06 09:24 Order name: Urine Dipstick-Ancillary (obtain specimen); Complete Time: 10:30 [facility] 01/06 11:34 Order name: EKG; Complete Time: 11:34 [facility] 01/06 11:34 Order name: EKG - Nurse/Tech; Complete Time: 12:08 [facility] Administered Medications: 09:32 Drug: Aspirin Chewable Tablet 324 mg Route: PO; tw2 10:35 Follow up: Response: No adverse reaction hb 09:32 Drug: Lopressor (metoprolol TARTRATE) 50 mg Route: PO; tw2 10:05 Follow up: Response: No adverse reaction; Blood pressure is lowered hb 09:35 Drug: Pepcid 20 mg Route: IVP; Site: left antecubital; tw2 10:00 Follow up: Response: No adverse reaction hb 11:26 Drug: Rocephin - (cefTRIAXone) 1 grams Route: IVPB; Infused Over: 30 mins; Site: left hb antecubital; 12:00 Follow up: Response: No adverse reaction; IV Status: Completed infusion hb 11:26 Drug: Zithromax 500 mg Route: PO; hb 12:00 Follow up: Response: No adverse reaction hb Disposition: 01/06/18 12:02 Discharged to Home. Impression: Essential (primary) hypertension, Type 2 diabetes mellitus, Pleurisy, Dyspnea, Tobacco abuse counseling, Tobacco use, Bronchitis, not specified as acute or chronic. - Condition is Stable. - Discharge Instructions: Type 2 Diabetes Mellitus, Diagnosis, Adult, Hypertension, Pleurisy, Steps to Quit Smoking, Smoking Hazards, Hypertension, Buvq-ft-Dnpm, Steps to Quit Smoking, Jjno-tu-Vaxk, How to Take Your Blood Pressure, Epag-ui-Swav, Aspirin and Your Heart, Pleurisy, Pzfe-zr-Mrml, Type 2 Diabetes Mellitus, Diagnosis, Adult, Cmbd-mb-Ncqf, Managing Your Hypertension. - Prescriptions for Ibuprofen 600 mg Oral Tablet - take 1 tablet by ORAL route every 8 hours As needed take with food; 21 tablet. Zithromax Z- Jae 250 mg Oral Tablet - take 1 tablet by ORAL route as directed for 5 days Day 1 - take two (2) tablets one time. Day 2, 3, 4 , 5 take one (1) tablet once daily.; 6 tablet. - Medication Reconciliation Form, Thank You Letter, Antibiotic Education, Prescription Opioid Use form. - Follow up: Roni Lino; When: 2 - 3 days; Reason: Recheck today's complaints, Continuance of care, Re-evaluation by your physician. Follow up: Aram Rodriguez; When: 2 - 3 days; Reason: Recheck today's complaints, Re-evaluation by your physician. - Problem is new. - Symptoms have improved. Signatures: Dispatcher [employer] EDMS Rolly Daugherty MD MD cha Williams, Irene, RN RN Marlin Cardona RN RN aa5 Juanita Booth RN RN hb Wise, Tara RN RN tw2 Corrections: (The following items were deleted from the chart) 12:37 12:02 01/06/2018 12:02 Discharged to Home. Impression: Essential (primary) iw hypertension; Type 2 diabetes mellitus; Pleurisy; Dyspnea; Tobacco abuse counseling; Tobacco use; Bronchitis, not specified as acute or chronic. Condition is Stable. Discharge Instructions: Type 2 Diabetes Mellitus, Diagnosis, Adult, Hypertension, Pleurisy, Steps to Quit Smoking, Smoking Hazards, Hypertension, Beyy-ug-Jhzq, Steps to Quit Smoking, Kjyj-nv-Hgrw, How to Take Your Blood Pressure, Rnjq-py-Uplz, Aspirin and Your Heart, Pleurisy, Osmr-np-Fntb, Type 2 Diabetes Mellitus, Diagnosis, Adult, Ejqt-vm-Gbky, Managing Your Hypertension. Prescriptions for Ibuprofen 600 mg Oral Tablet - take 1 tablet by ORAL route every 8 hours As needed take with food; 21 tablet, Zithromax Z-Jae 250 mg Oral Tablet - take 1 tablet by ORAL route as directed for 5 days Day 1 - take two (2) tablets one time. Day 2, 3, 4 , 5 take one (1) tablet once daily.; 6 tablet. and Forms are Medication Reconciliation Form, Thank You Letter, Antibiotic Education, Prescription Opioid Use. Follow up: Roni Lino; When: 2 - 3 days; Reason: Recheck today's complaints, Continuance of care, Re-evaluation by your physician. Follow up: Aram Rodriguez; When: 2 - 3 days; Reason: Recheck today's complaints, Re-evaluation by your physician. Problem is new. Symptoms have improved. scarlett
--- OUTSIDE RECORDS SUMMARY | 2018-01-06 12:37 | XMS REPORT ---
:1975 [facility] Team Providers Name Role Phone Roni [...] End Status Dosage System Date Date Metoprolol [facility] 04526845986 50 MG Orally Active 1 tablet Tartrate Twice a day with food Duexis [facility] 65749254381 800-26.6 MG Active 1 tablet Orally Three times a day Sertraline HCl ND 55866183590 50 MG Orally August 28, Active Take 1/2 Once a day 2018 tab QHS x 1 week then 1 tab QHS Amlodipine [facility] 14411666187 5 MG Active TAKE 1 Besylate TABLET BY MOUTH DAILY Jardiance [facility] 18083510704 10 MG Orally Nov 26, Active 1 tablet Once a day 2017 Aspirin 81 [facility] 38612648529 81 MG Orally Active 1 tablet Once a day Lipitor [facility] 27570368654 20 MG Orally Active 1 tablet Once a day BusPIRone HCl [facility] 74858596849 5 MG Orally August 28, Active 1 tablet Twice a day 2017 Pantoprazole [facility] 15049025245 40 MG Active TAKE 1 Sodium TABLET BY MOUTH EVERY MORNING Aprumet [facility] 66780250144 50-1000 MG Active 1 tablet Orally Twice a with meals day Norvasc [facility] 76059849651 5 MG Orally Active 1 tablet [facility] a day [facility] 50633438497 50-1000 MG Active 1 tablet Orally Twice a with meals day Lisinopril [facility] 11773753020 40 MG Active TAKE 1 TABLET BY MOUTH DAILY Metoprolol [facility] 58481175939 50 MG Active TAKE 1 Tartrate TABLET BY MOUTH TWICE DAILY Pantoprazole [facility] 15903836863 40 MG Orally Active 1 tablet Sodium Once a day Results No Known Results Summary Purpose [employer] Submission
--- OUTSIDE RECORDS SUMMARY | 2018-01-06 12:37 | XMS REPORT ---
:1975 Author Organization [employer] Care Team Providers Name Role Phone Roni Lino Provider Role Unavailable Allergies, Adverse Reactions, Alerts Substance Reaction Event Type N.K.D.A. Info Not Available Non Drug Allergy Problems Problem Type Condition Code Onset Dates Condition Status Problem Malaise and fatigue R53.81 Active Problem Chest pain R07.9 Active Problem Cellulitis L03.90 Active Problem Generalized anxiety disorder F41.1 Active Assessment Gastro-esophageal reflux disease K21.9 Active without esophagitis Problem Irritability and anger R45.4 Active Assessment Tobacco use disorder F17.200 Active Assessment Decreased libido R68.82 Active Problem Panic attack F41.0 Active Problem Primary hypersomnia F51.11 Active Problem Left ventricular hypertrophy I51.7 Active Problem Benign essential hypertension I10 Active Problem Tobacco use disorder F17.200 Active Assessment Irritability and anger R45.4 Active Assessment Generalized anxiety disorder F41.1 Active Assessment Benign essential hypertension I10 Active Assessment Panic attack F41.0 Active Problem Uncontrolled type 2 diabetes E11.65 Active mellitus without complication, without long-term current use of insulin Assessment Mixed hyperlipidemia E78.2 Active Problem Mixed hyperlipidemia E78.2 Active Assessment Uncontrolled type 2 diabetes E11.65 Active mellitus without complication, without long-term current use of insulin Problem Gastro-esophageal reflux disease K21.9 Active without esophagitis Medications Medication Code Code Instructions Start End Status Dosage System Date Date Metoprolol ND 02966891222 50 MG Active TAKE 1 Tartrate TABLET BY MOUTH TWICE DAILY Amlodipine ND 27360868531 5 MG Active TAKE 1 Besylate TABLET BY MOUTH DAILY Metformin HCl ND 69723643282 1000 MG Orally Dec 05, Active 1 tablet Twice a day 2017 with a meal Lisinopril ND 10452087573 40 MG PO Once a Active TAKE 1 day TABLET BY MOUTH DAILY Citalopram ND 02839076394 20 MG Orally Active 1 tablet Hydrobromide Once a day Pantoprazole ND 95820762454 40 MG Active TAKE 1 Sodium TABLET BY MOUTH EVERY MORNING Jardiance [facility] 07838521682 25 MG Orally Nov Active 1 tablet Once a day 2017umet [facility] 52548578564 50-1000 MG Inactive 1 tablet Orally Twice a with day meals Pantoprazole [facility] 44163667674 40 MG Orally Active 1 tablet Sodium Once a day Norvasc [facility] 66271371770 5 MG Orally Active 1 tablet Once a day Aspirin 81 [facility] 61867970101 81 MG Orally Active 1 tablet Once a day HydrOXYzine HCl [facility] 44932373206 50 MG Orally Active 1 tablet every 8 hrs PRN as needed Anxiety Metoprolol [facility] 96938857121 50 MG Orally Active 1 tablet Tartrate Twice a day with food Lipitor [facility] 12135534758 20 MG Orally Active 1 tablet Once a day Duexis [facility] 00144140516 800-26.6 MG Active 1 tablet Orally Three times a day [facility] 97591977628 50-1000 MG Active 1 tablet Orally Twice a with day meals Lipitor [facility] [address]-74 20 MG Active 1 tablet Once a day Orally 30 days Results No Known Results Summary Purpose eClinicalWorks Submission
--- OUTSIDE RECORDS SUMMARY | 2018-01-06 12:37 | XMS REPORT ---
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 Active Problem Left ventricular hypertrophy I51.7 Active Problem Benign essential hypertension I10 Active Problem Tobacco use disorder F17.200 Active Assessment Panic attack F41.0 Active Problem Uncontrolled type 2 diabetes E11.65 Active mellitus without complication, without long-term current use of insulin Assessment Irritability and anger R45.4 Active Problem Mixed hyperlipidemia E78.2 Active Assessment Generalized anxiety disorder F41.1 Active Problem Gastro-esophageal reflux disease K21.9 Active without esophagitis Medications Medication Code Code Instructions Start End Status Dosage System Date Date Aspirin 81 [facility] 21737190241 81 MG Orally Active 1 tablet Once a day Duexis [facility] 41948759688 800-26.6 MG Active 1 tablet Orally Three times a day Jardiance [facility] 76896230337 10 MG Orally Active 1 tablet Once a day Escitalopram [facility] 96054341885 10 MG Orally October 01, Active 1 tablet Oxalate Once a day 2017 HydrOXYzine HCl [facility] 30048884371 50 MG Orally November 04, Active 1 tablet every 8 hrs PRN 2018 as needed Anxiety Metoprolol [facility] 66596370771 50 MG Active TAKE 1 Tartrate TABLET BY MOUTH TWICE DAILY Amlodipine [facility] 50018207671 5 MG Active TAKE 1 Besylate TABLET BY MOUTH DAILY Lisinopril [facility] 88678940363 40 MG Orally Active TAKE 1 Once a day TABLET BY MOUTH DAILY Lipitor [facility] [address]-11 20 MG Active 1 tablet Once a day Orally 30 days Janumet [facility] 86379861449 50-1000 MG Active 1 tablet Orally Twice a with meals day Citalopram [facility] 00328766010 20 MG Orally November 04, Active 1 tablet Hydrobromide Once a day 2017 Pantoprazole [facility] 39159721413 40 MG Active TAKE 1 Sodium TABLET BY MOUTH EVERY MORNING Results No Known Results Summary Purpose eClinicalWorks Submission
--- OUTSIDE RECORDS SUMMARY | 2018-01-06 12:37 | XMS REPORT ---
[...] Start End Date Status Dosage Date Lipitor [facility] 01566006493 20 MG Orally Once Active 1 tablet a day Janumet [facility] 21214152823 50-1000 MG Orally Active 1 tablet Twice a day with meals Jardiance [facility] 53120343796 10 MG Orally Once Active 1 tablet a day Results No Known Results Summary Purpose eClinicalWorks Submission
--- OUTSIDE RECORDS SUMMARY | 2018-01-06 12:37 | XMS REPORT ---
[...] End Status Dosage System Date Date Norvasc [facility] 61099784630 5 MG Orally Once Active 1 tablet a day Lisinopril [facility] 90959595428 40 MG Orally Active TAKE 1 Once a day TABLET BY MOUTH DAILY Metoprolol [facility] 57587188358 50 MG Orally Active 1 tablet Tartrate Twice a day with food Pantoprazole [facility] 43913873776 40 MG Orally Active 1 tablet Sodium Once a day Results No Known Results Summary Purpose eClinicalWorks Submission
--- OUTSIDE RECORDS SUMMARY | 2018-01-06 12:37 | XMS REPORT ---
[...] End Status Dosage System Date Date Pantoprazole [facility] 77577190018 40 MG Active TAKE 1 Sodium TABLET BY MOUTH EVERY MORNING Aspirin 81 [facility] 08560411633 81 MG Orally Active 1 tablet Once a day Jardiance [facility] 21048807534 10 MG Orally Active 1 tablet Once a day Lipitor [facility] [address]-23 20 MG Active 1 tablet Once a day Orally 30 days BusPIRone HCl [facility] 71991113584 5 MG Orally Inactive 1 tablet Twice a day Duexis [facility] 32211034179 800-26.6 MG Active 1 tablet Orally Three times a day Metoprolol [facility] 60040648094 50 MG Active TAKE 1 Tartrate TABLET BY MOUTH TWICE DAILY Sertraline HCl [facility] 56054013562 50 MG Orally Inactive Take 1/2 Once a day tab QHS x 1 week then 1 tab QHS Janumet [facility] 19989139007 50-1000 MG Active 1 tablet Orally Twice a with day meals Lisinopril [facility] 57850769678 40 MG Orally Active TAKE 1 Once a day TABLET BY MOUTH DAILY Escitalopram [facility] 05498100258 10 MG Orally October 01, Active 1 tablet Oxalate Once a day 2017 Amlodipine [facility] 10444691735 5 MG Active TAKE 1 Besylate TABLET BY MOUTH DAILY Results No Known Results Summary Purpose eClinicalWorks Submission
[2018-01-06 12:48] VITALS: TEMP 97.8
[2018-01-06 12:50] VITALS: BP 128/77; O2SAT 98
[2018-01-06 14:02] LABS: Urine Blood TRACE (NEG); Urine Glucose 2+ (NEG); Urine Protein NEGATIVE (NEG); Urine Specific Gravity 1.015 (1.005-1.030); Urine pH 6.5 (5.0-7.0)
--- NOTE | 2018-01-06 15:40 | EKG ---
Test Date: 2018-01-06 Test Time: 11:58:18 Tour Guide: CHRIS MEASUREMENT RESULTS: Intervals: Rate: 56 AR: 148 QRSD: 92 QT: 428 QTc: 413 Holley: P: 40 AR: 148 QRS: 70 T: 54 INTERPRETIVE STATEMENTS: Sinus bradycardia Otherwise normal ECG Compared to ECG 01/06/2018 09:25:03 Sinus rhythm no longer present Right-axis deviation no longer present Electronically Signed On 01-06-18 15:39:37 CDT by Derik Araiza
== END 2018-01-06 12:37 | disposition home or self-care (01) ==
LOC: ER 09:02
DX: J40 Bronchitis, not specified as acute or chronic (principal); I10 Essential (primary) hypertension; R09.1 Pleurisy; R06.00 Dyspnea, unspecified; Z72.0 Tobacco use; Z71.6 Tobacco abuse counseling
CPT/HCPCS: 36415; 71045; 71275; 80048; 80076; 81003; 83690; 83735; 83880; 84484; 85025; 85610; 87040; 93005; 96365; 96375; 99285; J0696; Q9967

== ENCOUNTER 2018-01-13 21:10 | Emergency (ER) | payer BC ==
--- OUTSIDE RECORDS SUMMARY | 2018-01-13 21:24 | XMS REPORT ---
[...] End Status Dosage System Date Date Norvasc [facility] 33435113230 5 MG Orally Once Active 1 tablet a day Lisinopril [facility] 13059427776 40 MG Orally Active TAKE 1 Once a day TABLET BY MOUTH DAILY Metoprolol [facility] 89997595852 50 MG Orally Active 1 tablet Tartrate Twice a day with food Pantoprazole [facility] 44706494156 40 MG Orally Active 1 tablet Sodium Once a day Results No Known Results Summary Purpose eClinicalWorks Submission
--- OUTSIDE RECORDS SUMMARY | 2018-01-13 21:24 | XMS REPORT ---
[...] End Status Dosage System Date Date Pantoprazole [facility] 19069414530 40 MG Active TAKE 1 Sodium TABLET BY MOUTH EVERY MORNING Aspirin 81 [facility] 20950016090 81 MG Orally Active 1 tablet Once a day Jardiance [facility] 02160453986 10 MG Orally Active 1 tablet Once a day Lipitor [facility] [address]-42 20 MG Active 1 tablet Once a day Orally 30 days BusPIRone HCl [facility] 73677637308 5 MG Orally Inactive 1 tablet Twice a day Duexis [facility] 14194656387 800-26.6 MG Active 1 tablet Orally Three times a day Metoprolol [facility] 32732100307 50 MG Active TAKE 1 Tartrate TABLET BY MOUTH TWICE DAILY Sertraline HCl [facility] 43170296597 50 MG Orally Inactive Take 1/2 Once a day tab QHS x 1 week then 1 tab QHS Janumet [facility] 60128811751 50-1000 MG Active 1 tablet Orally Twice a with day meals Lisinopril [facility] 28007496453 40 MG Orally Active TAKE 1 Once a day TABLET BY MOUTH DAILY Escitalopram [facility] 81878167502 10 MG Orally October 01, Active 1 tablet Oxalate Once a day 2017 Amlodipine [facility] 86408453202 5 MG Active TAKE 1 Besylate TABLET BY MOUTH DAILY Results No Known Results Summary Purpose eClinicalWorks Submission
--- OUTSIDE RECORDS SUMMARY | 2018-01-13 21:24 | XMS REPORT ---
[...] Start End Date Status Dosage Date Lipitor [facility] 35338144185 20 MG Orally Once Active 1 tablet a day Janumet [facility] 87058385634 50-1000 MG Orally Active 1 tablet Twice a day with meals Jardiance [facility] 65206131021 10 MG Orally Once Active 1 tablet a day Results No Known Results Summary Purpose eClinicalWorks Submission
--- OUTSIDE RECORDS SUMMARY | 2018-01-13 21:24 | XMS REPORT ---
[...] Status Dosage System Date Date Metoprolol ND 56874708814 50 MG Active TAKE 1 Tartrate TABLET BY MOUTH TWICE DAILY Amlodipine ND 15283016160 5 MG Active TAKE 1 Besylate TABLET BY MOUTH DAILY Metformin HCl ND 91705306767 1000 MG Orally Dec 05, Active 1 tablet Twice a day 2017 with a meal Lisinopril ND 81080474978 40 MG PO Once a Active TAKE 1 day TABLET BY MOUTH DAILY Citalopram ND 29545172315 20 MG Orally Active 1 tablet Hydrobromide Once a day Pantoprazole ND 79830674705 40 MG Active TAKE 1 Sodium TABLET BY MOUTH EVERY MORNING Jardiance [facility] 79649276763 25 MG Orally Nov Active 1 tablet Once a day 2017umet [facility] 42753584487 50-1000 MG Inactive 1 tablet Orally Twice a with day meals Pantoprazole [facility] 68752518498 40 MG Orally Active 1 tablet Sodium Once a day Norvasc [facility] 94581750695 5 MG Orally Active 1 tablet Once a day Aspirin [address] [facility] 32028221187 81 MG Orally Active 1 tablet Once a day HydrOXYzine HCl [facility] 74285440669 50 MG Orally Active 1 tablet every 8 hrs PRN as needed Anxiety Metoprolol [facility] 25240655709 50 MG Orally Active 1 tablet Tartrate Twice a day with food Lipitor [facility] 88905624951 20 MG Orally Active 1 tablet Once a day Duexis [facility] 26737291209 800-26.6 MG Active 1 tablet Orally Three times a day [facility] 83432493467 50-1000 MG Active 1 tablet Orally Twice a with day meals Lipitor [facility] [address]-21 20 MG Active 1 tablet Once a day Orally 30 days Results No Known Results Summary Purpose eClinicalWorks Submission
--- OUTSIDE RECORDS SUMMARY | 2018-01-13 21:24 | XMS REPORT ---
:1975 Author Organization eClinicalWorks Care Team Providers Name Role Phone Holland Roni Provider Role Unavailable Allergies, Adverse Reactions, Alerts [...] Problem Tobacco use disorder F17.200 Active Assessment Tobacco use disorder F17.200 Active Problem Uncontrolled type 2 diabetes E11.65 Active mellitus without complication, without long-term current use of insulin Assessment Benign essential hypertension I10 Active Problem Mixed hyperlipidemia E78.2 Active Assessment Acute bronchitis, unspecified J20.9 Active organism Problem Gastro-esophageal reflux disease K21.9 Active without esophagitis Medications Medication Code Code Instructions Start End Status Dosage System Date Date Chantix [facility] 40942365594 0.5 MG X 11 & 1 Jan 07, Feb 06, Active as Starting Month MG X 42 Orally 2017 2017 directed Jae as directed Amlodipine [facility] 96211980165 5 MG Active TAKE 1 Besylate TABLET BY MOUTH DAILY Aspirin 81 [facility] 36559612187 81 MG Orally Active 1 tablet Once a day Lisinopril [facility] 63108677129 40 MG PO Once a Active TAKE 1 day TABLET BY MOUTH DAILY Lipitor [facility] 86838269022 20 MG Orally Active 1 tablet Once a day Chantix [facility] 59455539425 1 MG Orally Jan 07, Mar 08, Active 1 tablet Continuing Twice a day 2017 2018 Month Jae Metoprolol [facility] 94675963066 50 MG Orally Active 1 tablet Tartrate Twice a day with food Pantoprazole [facility] 97664759102 40 MG Active TAKE 1 Sodium TABLET BY MOUTH EVERY MORNING HydrOXYzine HCl [facility] 90183795923 50 MG Orally Active 1 tablet every 8 hrs PRN as needed Anxiety Metoprolol [facility] 60859377741 50 MG Orally Active 1 tablet Tartrate Twice a day with food Janumet [facility] 27345519387 50-1000 MG Active 1 tablet Orally Twice a with meals day Lipitor [facility] [address]-55 20 MG Active 1 tablet Once a day Orally 30 days Norvasc [facility] 16132868175 5 MG Orally Active 1 tablet Once a day Pantoprazole [facility] 07957729716 40 MG Orally Active 1 tablet Sodium Once a day Jardiance [facility] 60231455348 25 MG Orally Mar 05, Active 1 tablet Once a day 2017 Citalopram [facility] 11089609311 20 MG Orally Active 1 tablet Hydrobromide Once a day Metoprolol [facility] 12522229318 50 MG Active TAKE 1 Tartrate TABLET BY MOUTH TWICE DAILY Duexis [facility] 79235116400 800-26.6 MG Active 1 tablet Orally Three times a day Metformin HCl [facility] 52022801036 1000 MG Orally Dec 05, Active 1 tablet Twice a day 2017 with a meal Results No Known Results Summary Purpose eClinicalWorks Submission
--- OUTSIDE RECORDS SUMMARY | 2018-01-13 21:24 | XMS REPORT ---
:1975 [facility] [facility] Team Providers Name Role Phone Roni [...] End Status Dosage System Date Date Metoprolol [facility] 90021318892 50 MG Orally Active 1 tablet Tartrate Twice a day with food Duexis [facility] 98287726438 800-26.6 MG Active 1 tablet Orally Three times a day Sertraline HCl ND 93392658344 50 MG Orally August 28, Active Take 1/2 Once a day 2018 tab QHS x 1 week then 1 tab QHS Amlodipine [facility] 63966628848 5 MG Active TAKE 1 Besylate TABLET BY MOUTH DAILY Jardiance [facility] 94537405269 10 MG Orally Nov 26, Active 1 tablet Once a day 2017 Aspirin 81 [facility] 45639060101 81 MG Orally Active 1 tablet Once a day Lipitor [facility] 05887043056 20 MG Orally Active 1 tablet Once a day BusPIRone HCl [facility] 35739054595 5 MG Orally August 28, Active 1 tablet Twice a day 2017 Pantoprazole [facility] 30292467592 40 MG Active TAKE 1 Sodium TABLET BY MOUTH EVERY MORNING Aprumet [facility] 61239239278 50-1000 MG Active 1 tablet Orally Twice a with meals day Norvasc [facility] 06878962869 5 MG Orally Active 1 tablet [facility] 27093575057 50-1000 MG Active 1 tablet Orally Twice a with meals day Lisinopril [facility] 31972238887 40 MG Active TAKE 1 TABLET BY MOUTH DAILY Metoprolol [facility] 28775137281 50 MG Active TAKE 1 Tartrate TABLET BY MOUTH TWICE DAILY Pantoprazole [facility] 80918033878 40 MG Orally Active 1 tablet Sodium Once a day Results No Known Results Summary Purpose eClinicalWorks Submission
--- OUTSIDE RECORDS SUMMARY | 2018-01-13 21:24 | XMS REPORT ---
[...] Status Dosage System Date Date Aspirin [address] [facility] 68962735954 81 MG Orally Active 1 tablet Once a day Duexis [facility] 25985412441 800-26.6 MG Active 1 tablet Orally Three times a day Jardiance [facility] 26154680848 10 MG Orally Active 1 tablet Once a day Escitalopram [facility] 76300457437 10 MG Orally October 01, Active 1 tablet Oxalate Once a day [address] [facility] 53495552534 50 MG Orally November 04, Active 1 tablet every 8 hrs PRN 2018 as needed Anxiety Metoprolol [facility] 99701159315 50 MG Active TAKE 1 Tartrate TABLET BY MOUTH TWICE DAILY Amlodipine [facility] 55242143338 5 MG Active TAKE 1 Besylate TABLET BY MOUTH DAILY Lisinopril [facility] 67526709650 40 MG Orally Active TAKE 1 Once a day TABLET BY MOUTH DAILY Lipitor [facility] [address]-68 20 MG Active 1 tablet Once a day Orally [address] [facility] 29568847611 50-1000 MG Active 1 tablet Orally Twice a with meals day Citalopram [facility] 76506054042 20 MG Orally November 04, Active 1 tablet Hydrobromide Once a day [address] [facility] 50857538533 40 MG Active TAKE 1 Sodium TABLET BY MOUTH EVERY MORNING Results No Known Results Summary Purpose eClinicalWorks Submission
[2018-01-13] MEDS ORDERED: HYDROCODONE/APAP 10/325 TAB ONE (22:54)
[2018-01-13] MEDS ORDERED: HYDROCODONE/CHLORPHEN 5 ML/OSYR ONE (22:55)
--- NOTE | 2018-01-14 01:19 | ER ---
Nurse's Notes [facility] Name: Baldemar Lujan Age: 42 yrs Sex: Male : 1975 Arrival Date: 01/13/2018 Time: 21:13 Bed 16 Private MD: Diagnosis: Bronchitis, not specified as acute or chronic Presentation: 01/13 21:31 Presenting complaint: Patient states: Patient was seen in this ER last week and aj1 diagnosed with bronchitis. afternoon he coughed really hard and felt a pop in his left side that has gotten progressively worse over the weekend. Patient reports pain is exacerbated by cough, deep breathing, and movement. Reports trouble sleeping due to pain. Transition of care: patient was not received from another setting of care. Onset of symptoms was December 2017. Risk Assessment: Do you want to hurt yourself or someone else? Patient reports no desire to harm self or others. Initial Sepsis Screen: Does the patient meet any 2 criteria? No. Patient's initial sepsis screen is negative. Does the patient have a suspected source of infection? Yes: Productive cough/pneumonia. Care prior to arrival: None. 21:31 Method Of Arrival: Ambulatory [facility] 21:31 Acuity: PHYLLIS 4 aj1 Triage Assessment: 21:35 General: Appears in no apparent distress. uncomfortable, Behavior is calm, cooperative, aj1 appropriate for age. Pain: Pain currently is 5 out of 10 on a pain scale. at worst was 10 out of 10 on a pain scale. Neuro: Level of Consciousness is awake, alert, obeys commands, Oriented to person, place, time, situation. Cardiovascular: Patient's skin is warm and dry. Respiratory: Reports cough that is persistent Airway is patent Respiratory effort is even, unlabored, Respiratory pattern is regular, symmetrical. Historical: - Allergies: 21:35 No Known Allergies; aj1 - Home Meds: 21:35 amlodipine oral [Active]; Aspirin Oral [Active]; Duexis Oral [Active]; Janumet Oral aj1 [Active]; Jardiance Oral [Active]; Lipitor Oral [Active]; lisinopril 40 mg Oral tab 1 tab once daily [Active]; Metformin Oral [Active]; Metoprolol Tartrate Oral [Active]; Protonix Oral [Active]; - PMHx: 21:35 Diabetes - NIDDM; Hypertension; aj1 - Immunization history:: Flu vaccine is not up to date. - Social history:: Smoking status: Patient uses tobacco products, smokes one-half pack cigarettes per day. - Ebola Screening: : Patient denies travel to an Ebola-affected area in the 21 days before illness onset. Screenin:45 Abuse screen: Denies threats or abuse. Denies injuries from another. Nutritional aa1 screening: No deficits noted. Tuberculosis screening: No symptoms or risk factors identified. Fall Risk None identified. Assessment: 21:45 General: Appears in no apparent distress. comfortable, Behavior is calm, cooperative, aa1 appropriate for age. Pain: Complains of pain in diaphragm and left lateral anterior chest Quality of pain is described as sharp, shooting. Neuro: Level of Consciousness is awake, alert, obeys commands, Oriented to person, place, time, situation, Moves all extremities. Full function Gait is steady. Respiratory: Reports pain with cough pain with movement pain with respiration Airway is patent Respiratory effort is even, unlabored, Respiratory pattern is regular, symmetrical, Breath sounds are clear bilaterally. GI: No signs and/or symptoms were reported involving the gastrointestinal system. : No signs and/or symptoms were reported regarding the genitourinary system. EENT: No signs and/or symptoms were reported regarding the EENT system. Derm: Skin is intact, is healthy with good turgor, Skin is pink, warm \T\ dry. Musculoskeletal: Circulation, motion, and sensation intact. Capillary refill < 3 seconds, Range of motion: intact in all extremities. 22:10 Reassessment: Patient appears in no apparent distress at this time. Patient and/or aa1 family updated on plan of care and expected duration. Pain level reassessed. Patient is alert, oriented x 3, equal unlabored respirations, skin warm/dry/pink. Pt still awaiting provider initial assessment. 23:10 Reassessment: Patient appears in no apparent distress at this time. Patient and/or aa1 family updated on plan of care and expected duration. Pain level reassessed. Patient is alert, oriented x 3, equal unlabored respirations, skin warm/dry/pink. Awaiting x-ray results. 01/14 01:37 Reassessment: Patient appears in no apparent distress at this time. Patient is alert, aa1 oriented x 3, equal unlabored respirations, skin warm/dry/pink. Discussed d/c \T\ f/u instructions with pt \T\ significant other; denies questions or concerns at this time. Vital Signs: 01/13 21:35 BP 158 / 102; Pulse 75; Resp 18; Temp 97.6; Pulse Ox 97% on R/A; Weight 131.09 kg (R); aj1 Height 6 ft. 2 in. (187.96 cm) (R); 23:10 BP 179 / 95; Pulse 59; Resp 16; Pulse Ox 97% on R/A; aa1 01/14 01:31 BP 137 / 87; Pulse 64; Resp 18; Pulse Ox 98% on R/A; oe 01/13 21:35 Body Mass Index 37.11 (131.09 kg, 187.96 cm) aj1 ED Course: 01/13 21:13 Patient arrived in ED. ag3 21:34 Triage completed. aj1 21:35 Arm band placed on Patient placed in an exam room. aj1 21:45 Yair Ríos NP is PHCP. pm1 21:45 Chapin Almanza MD is Attending Physician. pm1 21:45 Patient has correct armband on for positive identification. Bed in low position. Call aa1 light in reach. Pulse ox on. NIBP on. 22:09 Rachel Myaer, RN is Primary Nurse. aa1 23:00 Ribs Left XRAY In Process Unspecified. EDMS 23:01 Chest Single View XRAY In Process Unspecified. EDMS 01/14 01:37 No provider procedures requiring assistance completed. Patient did not have IV access aa1 during this emergency room visit. Administered Medications: 01/13 23:09 Drug: Dema 10 mg-325 mg 1 tabs Route: PO; aa1 01/14 00:00 Follow up: Response: No adverse reaction; Pain is decreased aa1 01/13 23:09 Drug: Tussionex Pennkinetic ER 5 ml Route: PO; aa1 01/14 00:00 Follow up: Response: No adverse reaction; Pain is decreased aa1 01:41 Follow up: Response: No adverse reaction; Pain is decreased aa1 Outcome: 01:18 Discharge ordered by . pm1 01:37 Discharged to home ambulatory, with significant other. aa1 01:37 Condition: good 01:37 Discharge instructions given to patient, significant other, Instructed on discharge instructions, follow up and referral plans. medication usage, Demonstrated understanding of instructions, follow-up care, medications, Prescriptions given X 4. 01:42 Patient left the ED. aa1 Signatures: Dispatcher [employer] EDMS Noemy Moran RN RN aj1 Rachel Mayer RN RN aa1 Yair Ríos, GLASS EMBOSSER GLASS EMBOSSER pm1 Michelet Lopez Alice ag3
--- NOTE | 2018-01-14 01:19 | EDPHYS ---
Physician Documentation [facility] Name: Baldemar Lujan Age: 42 yrs Sex: Male : 1975 Arrival Date: 01/13/2018 Time: 21:13 Bed 16 Private MD: ED Physician Chapin Almazna HPI: 01/13 23:00 This 42 yrs old Male presents to ER via Ambulatory with complaints of Left pm1 rib pain. 23:00 The patient or guardian reports Pain to right lower ribs with coughing. Patient felt pm1 popping sensations. Onset: The symptoms/episode began/occurred yesterday. Severity of symptoms: in the emergency department the symptoms are unchanged. Modifying factors: The symptoms are alleviated by nothing, the symptoms are aggravated by coughing. Associated signs and symptoms: Pertinent negatives: chest pain, fever, nausea, sore throat, vomiting. The patient has been recently seen at the [facility] Emergency Department, last week, for similar complaints labs were performed, X-rays were performed, CT scan was performed, was given a prescription for antibiotics. 23:00 Patient seen here last week and diagnosed with bronchitis. Patient reports coughing pm1 that hurts in his left lower rib cage. When he coughs hard he feels a popping sensation to his left lower ribs. No fever. No shortness of breath or chest pain. Historical: - Allergies: 21:35 No Known Allergies; aj1 - Home Meds: 21:35 amlodipine oral [Active]; Aspirin Oral [Active]; Duexis Oral [Active]; Janumet Oral aj1 [Active]; Jardiance Oral [Active]; Lipitor Oral [Active]; lisinopril 40 mg Oral tab 1 tab once daily [Active]; Metformin Oral [Active]; Metoprolol Tartrate Oral [Active]; Protonix Oral [Active]; - PMHx: 21:35 Diabetes - NIDDM; Hypertension; aj1 - Immunization history:: Flu vaccine is not up to date. - Social history:: Smoking status: Patient uses tobacco products, smokes one-half pack cigarettes per day. - Ebola Screening: : Patient denies travel to an Ebola-affected area in the 21 days before illness onset. ROS: 23:00 Constitutional: Negative for fever, chills, and weight loss, Eyes: Negative for injury, pm1 pain, redness, and discharge, ENT: Negative for injury, pain, and discharge, Neck: Negative for injury, pain, and swelling, Cardiovascular: Negative for chest pain, palpitations, and edema. 23:00 Abdomen/GI: Negative for abdominal pain, nausea, vomiting, diarrhea, and constipation, Back: Negative for injury and pain, : Negative for injury, bleeding, discharge, and swelling, MS/Extremity: Negative for injury and deformity, Skin: Negative for injury, rash, and discoloration, Neuro: Negative for headache, weakness, numbness, tingling, and seizure. 23:00 Respiratory: Positive for cough. Exam: 23:00 Constitutional: This is a well developed, well nourished patient who is awake, alert, pm1 and in no acute distress. Head/Face: Normocephalic, atraumatic. Eyes: Pupils equal round and reactive to light, extra-ocular motions intact. Lids and lashes normal. Conjunctiva and sclera are non-icteric and not injected. Cornea within normal limits. Periorbital areas with no swelling, redness, or edema. ENT: Nares patent. No nasal discharge, no septal abnormalities noted. Tympanic membranes are normal and external auditory canals are clear. Oropharynx with no redness, swelling, or masses, exudates, or evidence of obstruction, uvula midline. Mucous membranes moist. Neck: Trachea midline, no thyromegaly or masses palpated, and no cervical lymphadenopathy. Supple, full range of motion without nuchal rigidity, or vertebral point tenderness. No Meningismus. Cardiovascular: Regular rate and rhythm with a normal S1 and S2. No gallops, murmurs, or rubs. Normal PMI, no JVD. No pulse deficits. Respiratory: Lungs have equal breath sounds bilaterally, clear to auscultation and percussion. No rales, rhonchi or wheezes noted. No increased work of breathing, no retractions or nasal flaring. Abdomen/GI: Soft, non-tender, with normal bowel sounds. No distension or tympany. No guarding or rebound. No evidence of tenderness throughout. Back: No spinal tenderness. No costovertebral tenderness. Full range of motion. Skin: Warm, dry with normal turgor. Normal color with no rashes, no lesions, and no evidence of cellulitis. MS/ Extremity: Pulses equal, no cyanosis. Neurovascular intact. Full, normal range of motion. 23:00 Chest/axilla: Inspection: normal, Palpation: tenderness, of the focal point left lower anterior ribcage, that totally reproduces the patient's complaints. 23:00 Neuro: Orientation: is normal, Motor: moves all fours. Vital Signs: 21:35 BP 158 / 102; Pulse 75; Resp 18; Temp 97.6; Pulse Ox 97% on R/A; Weight 131.09 kg (R); aj1 Height 6 ft. 2 in. (187.96 cm) (R); 23:10 BP 179 / 95; Pulse 59; Resp 16; Pulse Ox 97% on R/A; aa1 01/14 01:31 BP 137 / 87; Pulse 64; Resp 18; Pulse Ox 98% on R/A; oe 01/13 21:35 Body Mass Index 37.11 (131.09 kg, 187.96 cm) aj1 MDM: 01/13 22:17 Patient medically screened. pm1 01/14 01:13 Data reviewed: vital signs. Data interpreted: Pulse oximetry: on room air is 97 %. pm1 Interpretation: normal. Counseling: I had a detailed discussion with the patient and/or guardian regarding: the historical points, exam findings, and any diagnostic results supporting the discharge/admit diagnosis, radiology results, the need for outpatient follow up, to return to the emergency department if symptoms worsen or persist or if there are any questions or concerns that arise at home. 01/13 22:41 Order name: Ribs Left XRAY pm1 01/13 22:41 Order name: Chest Single View XRAY pm1 Administered Medications: 01/13 23:09 Drug: [place] 10 mg-325 mg 1 tabs Route: PO; aa1 01/14 00:00 Follow up: Response: No adverse reaction; Pain is decreased aa1 01/13 23:09 Drug: Tussionex Pennkinetic ER 5 ml Route: PO; aa1 01/14 00:00 Follow up: Response: No adverse reaction; Pain is decreased aa1 01:41 Follow up: Response: No adverse reaction; Pain is decreased aa1 Disposition: 01:56 Co-signature as Attending Physician, Chapin Almanza MD. [email or web address] Disposition: 01/14/18 01:18 Discharged to Home. Impression: Bronchitis, not specified as acute or chronic. - Condition is Stable. - Discharge Instructions: Acute Bronchitis, Adult, Muscle Cramps and Spasms, Cough, Adult. - Prescriptions for Augmentin 875- 125 mg Oral Tablet - take 1 tablet by ORAL route every 12 hours for 10 days; 20 tablet. Guaifenesin AC 10- 100 mg/5 mL Oral Liquid - take 10 milliliter by ORAL route every 4 hours As needed; 240 milliliter. Naprosyn 500 mg Oral Tablet - take 1 tablet by ORAL route 2 times per day take with food; 30 tablet. Cyclobenzaprine 10 mg Oral Tablet - take 1 tablet by ORAL route every 8 hours As needed; 30 tablet. - Medication Reconciliation Form, Thank You Letter, Antibiotic Education, Prescription Opioid Use form. - Follow up: Emergency Department; When: As needed; Reason: Worsening of condition. Follow up: Private Physician; When: 2 - 3 days; Reason: Recheck today's complaints, Continuance of care, Re-evaluation by your physician. - Problem is new. - Symptoms have improved. Signatures: Dispatcher [employer] EDMS Noemy Moran RN RN aj1 Rachel Mayer RN RN aa1 Chapin Almanza MD MD pkl Marinas, Patrick, NP [facility] pm1 Corrections: (The following items were deleted from the chart) 01:42 01:18 01/14/2018 01:18 Discharged to Home. Impression: Bronchitis, not specified as aa1 acute or chronic. Condition is Stable. Forms are Medication Reconciliation Form, Thank You Letter, Antibiotic Education, Prescription Opioid Use. Follow up: Emergency Department; When: As needed; Reason: Worsening of condition. Follow up: Private Physician; When: 2 - 3 days; Reason: Recheck today's complaints, Continuance of care, Re-evaluation by your physician. Problem is new. Symptoms have improved. pm1
[2018-01-14 02:03] VITALS: TEMP 97.6
[2018-01-14 02:05] VITALS: BP 137/87; O2SAT 98
--- NOTE | 2018-01-14 09:00 | RAD REPORT ---
EXAM DESCRIPTION: Leona Single View01/13/2018 11:03 pm CLINICAL HISTORY: Cough COMPARISON: 01/06/2018 FINDINGS: The lungs appear clear of acute infiltrate. The heart is normal size IMPRESSION: No acute abnormalities displayed
--- NOTE | 2018-01-14 09:01 | RAD REPORT ---
EXAM DESCRIPTION: RAD - Ribs Left - 01/13/2018 11:02 pm CLINICAL HISTORY: Left rib pain FINDINGS: No fracture seen
== END 2018-01-14 01:42 | disposition home or self-care (01) ==
LOC: ER 21:10
DX: J40 Bronchitis, not specified as acute or chronic (principal); F17.210 Nicotine dependence, cigarettes, uncomplicated; I10 Essential (primary) hypertension; E11.9 Type 2 diabetes mellitus without complications; Z79.82 Long term (current) use of aspirin
CPT/HCPCS: 71045; 99284

== ENCOUNTER 2020-10-23 23:52 | Emergency (ER) | payer BC, SELFPAY ==
--- OUTSIDE RECORDS SUMMARY | 2020-10-23 23:55 | XMS REPORT | Continuity of Care Document ---
:1975 Author Organization [facility] t Address [address] [place] [address] Care Team Providers Name Role Phone Unavailable Unavailable Unavailable Problems This patient has no known problems. Allergies, Adverse Reactions, Alerts This patient has no known allergies or adverse reactions. Medications Ordered Filled Start Stop Current Ordering Indication Dosage Frequency Signature Comments Components Source Medication Medication Date Date Medication? Clinician (SIG) Name Name GlipiZIDE GlipiZIDE Yes Roni [address] [facility] ProAir HFA ProAir HFA 2018-04 Yes Roni [address] [facility] 1[facility] Clonazepam Clonazepam Yes Roni [address] [facility] Pantoprazol Pantoprazol Yes Roni [address] [facility] e Sodium e Sodium [facility] Jardiance Jardiance Yes Roni [address] [facility] Citalopram Citalopram Yes Roni [address] [facility] Hydrobromid Hydrobromid [facility] Lipitor Lipitor Yes Roni [address] [facility] Losartan Losartan Yes Roni [address] Potassium Potassium [facility] Aspirin 81 Aspirin 81 Yes Roni [address] [facility] Norvasc Norvasc Yes Roni [address] [facility] Metoprolol Metoprolol Yes Roni [address] [facility] Tartrate Tartrate [facility] with food [facility] Janumet Janumet Yes Roni [address] [facility] with meals [facility] Duexis Duexis Yes [facility] Fenofibrate Fenofibrate Yes Roni [address] [facility] with food [facility] Procedures This patient has no known procedures. Encounters Start End Encounter Admission Attending Care Care Encounter Source Date/Time Date/Time Type Type Clinicians Facility Department ID 2020-09-21 2020-09-21 [facility] [id number] 2020-05-24 2020-05-24 [facility] [id number] [facility] 2020-02-11 2020-02-11 [facility] [id number] [facility] 2019-11-10 2019-11-10 [facility] [id number] [facility] 16:30:00 16:30:00 [facility] l Medicine Outpati ent Clinics 2019-08-11 2019-08-11 [facility] [id number] [facility] 15[facility]15:00 15:15:00 [facility] Family Medicine l Medicine Outpati ent Clinics 2019-05-15 2019-05-15 [facility] [id number] [facility] 13:45:00 13:45:00 t Specialty/U Jazmín kes - Specialty rology [facility]rology [facility] l Clinic Outpati ent Clinics 2019-05-12 2019-05-12 [facility] [id number] [facility] 16:30:00 16:30:00 t Psy[employer]ex[facility] s - Drive [facility] Medicine Medicine Outpati ent Clinics 2019-05-04 2019-05-04 [facility] [id number] [facility] 08:43:00 08:43:00 t [place] [employer] Lu[employer] s - Drive [facility] l Medicine Outpati ent Clinics 2019-04-30 2019-04-30 [facility] [id number] 13:15:00 13:15:00 t [place] [employer] s - Drive [facility] Medicine Outpati ent Clinics 2019-03-02 2019-03-02 [facility] [id number] [facility] 07:18:00 07:18:00 [place] [employer] s - Drive [facility] Medicine Outpati ent Clinics 2019-02-26 2019-02-26 [facility] [id number] [facility] 15:00:00 15:00:00 [place] [employer] s - [facility] Medicine Outpati ent Clinics 2019-02-10 2019-02-10 [facility] [id number] [facility] 10:33:00 10:33:00 [place] [employer] s - Drive [facility] Medicine Outpati ent Clinics 2019-02-09 2019-02-09 [facility] [id number] [facility] 11:06:00 11:06:00 t [place] [employer] s - Drive [facility] Medicine Outpati ent Clinics 2019-01-06 2019-01-06 [facility] [id number] [facility] 16:30:00 16:30:00 [place] [employer] s - Drive [facility] Medicine Medicine Outpati ent Clinics 2018-09-29 2018-09-29 [facility] [id number] [facility] 14:15:00 14:15:00 [place] [employer] s - Drive [facility] Medicine Outpati ent Clinics 2018-07-01 2018-07-01 [facility] [id number] [facility] 09:41:00 09:41:00 [place] [employer] s - Drive [facility] Medicine Outpati ent Clinics 2018-06-30 2018-06-30 [facility] [id number] [facility] 13:00:00 13:00:00 t [place] [employer] [facility] s - Drive [facility] Medicine Outpati ent Clinics 2018-03-31 2018-03-31 [facility] [id number] [facility] 13:45:00 13:45:00 t [place] [employer] s - Drive [facility] Medicine Outpati ent Clinics 2018-03-26 2018-03-26 [facility] [id number] [facility] 11:26:00 11:26:00 [place] [employer] s - Drive [facility] Medicine Outpati ent Clinics 2018-01-07 2018-01-07 [facility] [id number] [facility] 10:15:00 10:15:00 [place] [employer] s - Drive [facility] Medicine Outpati ent Clinics 2017-12-05 2017-12-05 [facility] [id number] [facility] 14:00:00 14:00:00 [place] [employer] s - Drive [facility] Medicine Outpati ent Clinics 2017-11-04 2017-11-04 [facility] [id number] [facility] 13:00:00 13:00:00 [place] [employer] s - Drive [facility] Medicine Outpati ent Clinics 2017-10-01 2017-10-01 [facility] [id number] 09:15:00 09:15:00 [place] [employer] s - Drive [facility] Medicine Outpati ent Clinics 2017-09-18 2017-09-18 [facility] [id number] 12:07:00 12:07:00 [place] [employer] s - Drive [facility] Medicine Outpati ent Clinics 2017-09-11 2017-09-11 [facility] [id number] 10:35:00 10:35:00 [place] [employer] s - Drive [facility] Medicine Outpati ent Clinics 2017-08-28 2017-08-28 [facility] [id number] 15:30:00 15:30:00 [place] [employer] s - Drive [facility] Medicine Outpati ent Clinics Results This patient has no known results.
[2020-10-24 01:02] LABS: Basophils % 1.1 % (0-1.3); Hematocrit 47.6 % (39.6-49.0); Lymphocytes % 30.7 % (15.3-44.8); MPV 7.7 fL (7.6-11.3); RBC Red Blood Cell Count 5.23 M/uL (4.33-5.43)
[2020-10-24 01:14] LABS: Protime INR 0.93
[2020-10-24 01:24] LABS: ALT/SGPT 101 U/L (12-78); Albumin 4.1 g/dL (3.4-5.0); Alkaline Phosphatase 91 U/L (45-117); BUN Blood Urea Nitrogen 14 mg/dL (7-18); Bicarbonate 27 mmol/L (21-32); Bilirubin Direct < 0.1 mg/dL (0-0.2); Bilirubin Total 0.3 mg/dL (0.2-1.0); Glucose Level 243 mg/dL (74-106); NT PRO-BNP 12 pg/mL (<125); Protein, Total 7.5 g/dL (6.4-8.2); Sodium Level 135 mmol/L (136-145); Troponin (Emerg Dept Use Only) < 0.02 ng/mL (0.0-0.045)
[2020-10-24 01:26] LABS: AST/SGOT 41 U/L (15-37); Magnesium 2.3 mg/dL (1.8-2.4)
[2020-10-24 03:57] LABS: Thyroid Stimulating Hormone 4.18 uIU/mL (0.360-3.740)
[2020-10-24 04:03] LABS: Barbiturates NEGATIVE (NEGATIVE); Benzodiazepines NEGATIVE (NEGATIVE); Cocaine NEGATIVE (NEGATIVE); METHAMPHETAM NEGATIVE (NEGATIVE); Methadone NEGATIVE (NEGATIVE); Opiates NEGATIVE (NEGATIVE); Phencyclidine NEGATIVE (NEGATIVE); THC Cannibis NEGATIVE (NEGATIVE)
--- NOTE | 2020-10-24 05:38 | ER ---
Nurse's Notes [facility] Name: Baldemar Lujan Age: 45 yrs Sex: Male : 1975 Arrival Date: 10/23/2020 Time: 23:57 Bed 15 Private MD: Diagnosis: Palpitations Presentation: 10/24 00:04 Chief complaint: Patient states: after the shower started feeling flutters in the chest em and tightness, hx of HTN, feels off, denies N/V, ran out of BP meds 1 week ago, took BP at home and it was 160/105. Coronavirus screen: Client denies travel out of the [place] in the last 14 days. Ebola Screen: Patient negative for fever greater than or equal to 101.5 degrees Fahrenheit, and additional compatible Ebola Virus Disease symptoms Patient denies exposure to infectious person. Patient denies travel to an Ebola-affected area in the 21 days before illness onset. No symptoms or risks identified at this time. Initial Sepsis Screen: Does the patient meet any 2 criteria? HR > 90 bpm. No. Patient's initial sepsis screen is negative. Does the patient have a suspected source of infection? No. Patient's initial sepsis screen is negative. Risk Assessment: Do you want to hurt yourself or someone else? Patient reports no desire to harm self or others. Onset of symptoms was October 24, 2020. 00:04 Method Of Arrival: Ambulatory em 00:04 Acuity: PHYLLIS 3 em Historical: - Allergies: 00:06 No Known Allergies; em - PMHx: 00:06 Hypertension; Diabetes - NIDDM; Anxiety; em - PSHx: 00:06 None; em - Immunization history:: Adult Immunizations not immunized. - Social history:: Smoking status: Patient reports the use of cigarette tobacco products, smokes one pack cigarettes per day. Patient uses alcohol, weekly. Screenin:30 Abuse screen: Denies threats or abuse. Nutritional screening: No deficits noted. jb4 Tuberculosis screening: No symptoms or risk factors identified. Fall Risk None identified. Assessment: 00:30 General: Appears in no apparent distress. comfortable. Pain: Complains of pain in chest jb4 Pain does not radiate. Pain currently is 0 out of 10 on a pain scale. Quality of pain is described as tightness. Neuro: Level of Consciousness is awake, alert, obeys commands, Oriented to person, place, time, situation. Cardiovascular: Patient's skin is warm and dry. Respiratory: Airway is patent Respiratory effort is even, unlabored, Respiratory pattern is regular, symmetrical. GI: No signs and/or symptoms were reported involving the gastrointestinal system. : No signs and/or symptoms were reported regarding the genitourinary system. EENT: No signs and/or symptoms were reported regarding the EENT system. Derm: Skin is intact, Skin is pink, warm \T\ dry. Musculoskeletal: Circulation, motion, and sensation intact. Range of motion: intact in all extremities. 01:30 Reassessment: Patient appears in no apparent distress at this time. Patient and/or jb4 family updated on plan of care and expected duration. Pain level reassessed. Patient is alert, oriented x 3, equal unlabored respirations, skin warm/dry/pink. 02:30 Reassessment: Patient appears in no apparent distress at this time. Patient and/or jb4 family updated on plan of care and expected duration. Pain level reassessed. Patient is alert, oriented x 3, equal unlabored respirations, skin warm/dry/pink. 03:30 Reassessment: Patient appears in no apparent distress at this time. Patient and/or jb4 family updated on plan of care and expected duration. Pain level reassessed. Patient is alert, oriented x 3, equal unlabored respirations, skin warm/dry/pink. 05:00 Reassessment: Patient appears in no apparent distress at this time. Patient and/or jb4 family updated on plan of care and expected duration. Pain level reassessed. Patient is alert, oriented x 3, equal unlabored respirations, skin warm/dry/pink. Vital Signs: 00:04 BP 148 / 87; Pulse 99; Resp 18; Temp 97.0; Pulse Ox 99% on R/A; Weight 136.08 kg; em Height 6 ft. 2 in. (187.96 cm); Pain 0/10; 02:30 BP 127 / 85; Pulse 89; Resp 16; Pulse Ox 97% on R/A; jb4 03:00 BP 128 / 87; Pulse 75; Resp 16; Pulse Ox 96% on R/A; jb4 04:00 BP 129 / 84; Pulse 71; Resp 16; Pulse Ox 97% on R/A; jb4 05:00 BP 132 / 93; Pulse 70; Resp 16; Pulse Ox 97% on R/A; jb4 00:04 Body Mass Index 38.52 (136.08 kg, 187.96 cm) ED Course: 10/23 23:57 Patient arrived in ED. am4 0712 00:06 Triage completed. em 00:06 Arm band placed on. em 00:23 Bradley Shen, RN is Primary Nurse. jb4 00:30 Patient has correct armband on for positive identification. Bed in low position. Call jb4 light in reach. Side rails up X 1. Pulse ox on. NIBP on. 00:30 Patient maintains SpO2 saturation greater than 95% on room air. jb4 00:46 Rafiq Samuels MD is Attending Physician. [facility] 01:34 XRAY Chest (1 view) In Process Unspecified. EDMS 05:38 No provider procedures requiring assistance completed. IV discontinued, intact, jb4 bleeding controlled, No redness/swelling at site. Pressure dressing applied. Administered Medications: No medications were administered Outcome: 05:38 Discharge ordered by . [facility] 05:38 Discharged to home ambulatory. jb4 05:38 Condition: stable 05:38 Discharge instructions given to patient, Instructed on discharge instructions, follow up and referral plans. Demonstrated understanding of instructions, follow-up care. 05:43 Patient left the ED. jb4 Signatures: Dispatcher [employer] Loi Hdez RN RN Bradley Shen, EDUAR WITT jb Rafiq Samuels MD MD [facility] Lisa Sinha formerly [facility]
--- NOTE | 2020-10-24 05:39 | EDPHYS ---
Physician Documentation [facility] Name: Baldemar Lujan Age: 45 yrs Sex: Male : 1975 Arrival Date: 10/23/2020 Time: 23:57 Bed 15 Private MD: ED Physician Rafiq Samuels HPI: 10/24 02:10 This 45 yrs old Male presents to ER via Ambulatory with complaints of Doesn't mh7 Feel Right, Chest Tightness. 02:56 The patient presents with a history of heart racing. Context: The symptoms occur at mh7 rest. Onset: The symptoms/episode began/occurred last night. Duration: The patient or guardian reports multiple episodes, that are intermittent, that wax and wane. Modifying factors: The symptoms are aggravated by nothing. The symptoms are alleviated by nothing. Associated signs and symptoms: Pertinent positives: chest pain, Pertinent negatives: anxiety, cough, fever, lightheadedness, nausea, SOB, syncope, near-syncope, unusual stressors, vertigo, vomiting. Severity of symptoms: At their worst the symptoms were moderate last night, in the emergency department the symptoms have resolved and did so earlier today. Historical: - Allergies: 00:06 No Known Allergies; em - PMHx: 00:06 Hypertension; Diabetes - NIDDM; Anxiety; em - PSHx: 00:06 None; em - Immunization history:: Adult Immunizations not immunized. - Social history:: Smoking status: Patient reports the use of cigarette tobacco products, smokes one pack cigarettes per day. Patient uses alcohol, weekly. ROS: 02:56 Constitutional: Negative for fever, chills, and weight loss, Eyes: Negative for injury, mh7 pain, redness, and discharge, Neck: Negative for injury, pain, and swelling, Cardiovascular: Negative for chest pain, palpitations, and edema, Respiratory: Negative for shortness of breath, cough, wheezing, and pleuritic chest pain, Abdomen/GI: Negative for abdominal pain, nausea, vomiting, diarrhea, and constipation, Back: Negative for injury and pain, : Negative for injury, bleeding, discharge, and swelling, MS/Extremity: Negative for injury and deformity, Skin: Negative for injury, rash, and discoloration, Neuro: Negative for headache, weakness, numbness, tingling, and seizure, Psych: Negative for depression, anxiety, suicide ideation, homicidal ideation, and hallucinations, Allergy/Immunology: Negative for hives, rash, and allergies, Endocrine: Negative for neck swelling, polydipsia, polyuria, polyphagia, and marked weight changes, Hematologic/Lymphatic: Negative for swollen nodes, abnormal bleeding, and unusual bruising. Exam: 02:56 Constitutional: This is a well developed, well nourished patient who is awake, alert, mh7 and in no acute distress. Head/Face: Normocephalic, atraumatic. Eyes: Pupils equal round and reactive to light, extra-ocular motions intact. Lids and lashes normal. Conjunctiva and sclera are non-icteric and not injected. Cornea within normal limits. Periorbital areas with no swelling, redness, or edema. Neck: Trachea midline, no thyromegaly or masses palpated, and no cervical lymphadenopathy. Supple, full range of motion without nuchal rigidity, or vertebral point tenderness. No Meningismus. Chest/axilla: Normal chest wall appearance and motion. Nontender with no deformity. No lesions are appreciated. Cardiovascular: Regular rate and rhythm with a normal S1 and S2. No gallops, murmurs, or rubs. Normal PMI, no JVD. No pulse deficits. Respiratory: Lungs have equal breath sounds bilaterally, clear to auscultation and percussion. No rales, rhonchi or wheezes noted. No increased work of breathing, no retractions or nasal flaring. Abdomen/GI: Soft, non-tender, with normal bowel sounds. No distension or tympany. No guarding or rebound. No evidence of tenderness throughout. Back: No spinal tenderness. No costovertebral tenderness. Full range of motion. Skin: Warm, dry with normal turgor. Normal color with no rashes, no lesions, and no evidence of cellulitis. MS/ Extremity: Pulses equal, no cyanosis. Neurovascular intact. Full, normal range of motion. Neuro: Awake and alert, GCS 15, oriented to person, place, time, and situation. Cranial nerves II-XII grossly intact. Motor strength 5/5 in all extremities. Sensory grossly intact. Cerebellar exam normal. Normal gait. Psych: Awake, alert, with orientation to person, place and time. Behavior, mood, and affect are within normal limits. Vital Signs: 00:04 BP 148 / 87; Pulse 99; Resp 18; Temp 97.0; Pulse Ox 99% on R/A; Weight 136.08 kg; em Height 6 ft. 2 in. (187.96 cm); Pain 0/10; 02:30 BP 127 / 85; Pulse 89; Resp 16; Pulse Ox 97% on R/A; jb4 03:00 BP 128 / 87; Pulse 75; Resp 16; Pulse Ox 96% on R/A; jb4 04:00 BP 129 / 84; Pulse 71; Resp 16; Pulse Ox 97% on R/A; jb4 05:00 BP 132 / 93; Pulse 70; Resp 16; Pulse Ox 97% on R/A; jb4 00:04 Body Mass Index 38.52 (136.08 kg, 187.96 cm) em MDM: 05:37 Differential diagnosis: arrythmia, dehydration, stress disorder, Palpitations. Data [facility] reviewed: vital signs, nurses notes, lab test result(s), cardiac enzymes, CBC, electrolytes, EKG, radiologic studies, plain films. Data interpreted: Pulse oximetry: on room air is 97 %. Interpretation: normal. Counseling: I had a detailed discussion with the patient and/or guardian regarding: the historical points, exam findings, and any diagnostic results supporting the discharge/admit diagnosis, the presence of at least one elevated blood pressure reading (>120/80) during this emergency department visit, lab results, radiology results, the need for outpatient follow up, to return to the emergency department if symptoms worsen or persist or if there are any questions or concerns that arise at home. Response to treatment: the patient's symptoms have resolved after treatment, the patient's blood pressure is in an acceptable range, mental status has returned to baseline, the patient no longer shows bradycardia, the patient is not short of breath, the patient is not tachycardic, the patient's pain is gone, the patient's temperature has normalized. 05:38 Patient medically screened. mh7 10/24 00: Order name: Basic Metabolic Panel; Complete Time: :39 em 10/25 99: Order name: CBC with Diff; Complete Time: :39 em 10/25 99:21 Order name: LFT's; Complete Time: :39 em 10/25 99: Order name: Magnesium; Complete Time: :39 em 07/12 00:21 Order name: NT PRO-BNP; Complete Time: 01:39 10/24 00:21 Order name: PT-INR; Complete Time: 01:39 10/24 00:21 Order name: Troponin (emerg Dept Use Only); Complete Time: 01:39 10/24 02:59 Order name: TSH [facility] 10/24 02:59 Order name: UDS; Complete Time: 04:15 [facility] 10/24 02:59 Order name: Thyroid Stimulating Hormone; Complete Time: 04:15 [facility] 10/24 03:40 Order name: D-Dimer; Complete Time: 04:15 [facility] 10/24 03:57 Order name: T4 Free; Complete Time: 04:15 [facility] 10/24 04:16 Order name: Troponin (emerg Dept Use Only) [facility] 10/24 04:17 Order name: Troponin (Emerg Dept Use Only) [facility] 10/24 00:21 Order name: XRAY Chest (1 view) 10/24 00:21 Order name: EKG; Complete Time: 00:23 10/24 00:21 Order name: Cardiac monitoring; Complete Time: 00:23 10/24 00:21 Order name: EKG - Nurse/Tech; Complete Time: 00:22 10/24 00:21 Order name: IV Saline Lock; Complete Time: 00:58 10/24 00:21 Order name: Labs collected and sent; Complete Time: 00:58 10/24 00:21 Order name: O2 Per Protocol; Complete Time: 00:23 10/24 00:21 Order name: O2 Sat Monitoring; Complete Time: 00:23 10/24 02:59 Order name: Urine Dipstick-Ancillary (obtain specimen); Complete Time: 03:43 [facility] Administered Medications: No medications were administered Disposition Summary: 10/24/20 05:38 Discharge Ordered Location: Home [facility] Problem: new [facility] Symptoms: are resolved [facility] Condition: Stable [facility] Diagnosis - Palpitations [facility] Followup: [facility] - With: Private Physician - When: 1 - 2 days - Reason: Worsening of condition, Recheck today's complaints, Continuance of care, Re-evaluation by your physician Discharge Instructions: - Discharge Summary Sheet [facility] - Palpitations, [id number] [facility] Forms: - Medication Reconciliation Form [facility] - Thank You Letter 7 - Antibiotic Education [facility] - Prescription Opioid Use [facility] Signatures: Dispatcher [employer] Loi Hdez, EDUAR RN Rafiq Quinones MD MD [facility]
[2020-10-24 05:48] VITALS: TEMP 97
[2020-10-24 05:53] VITALS: O2SAT 97
[2020-10-24 05:54] VITALS: BP 132/93
--- NOTE | 2020-10-24 08:47 | RAD REPORT ---
EXAM DESCRIPTION: RAD - Chest Single View - 10/24/2020 1:34 am CLINICAL HISTORY: CHEST PAIN Chest pain. COMPARISON: Chest Single View dated 01/13/2018; Chest Single View dated 01/06/2018; Chest Single View dated 10/04/2017; Chest Single View dated 11/11/2016 FINDINGS: Portable technique limits examination quality. The lungs are grossly clear. The heart is normal in size. No displaced fractures. IMPRESSION: No acute intrathoracic process suspected.
--- NOTE | 2020-10-24 16:06 | EKG ---
Test Date: 2020-10-24 Test Time: 00:48:54 Adjunct Nursing Faculty: COURTNEY MEASUREMENT RESULTS: Intervals: Rate: 70 [place]: 176 QRSD: 110 QT: 400 QTc: 432 [place]: P: 41 [place]: 176 QRS: 35 T: 58 INTERPRETIVE STATEMENTS: Normal sinus rhythm Incomplete right bundle branch block Borderline ECG Compared to ECG 10/24/2020 00:20:12 Incomplete right bundle-branch block now present Electronically Signed On 10-24-20 16:04:02 CDT by Aram Rodriguez
--- NOTE | 2020-10-24 16:06 | EKG ---
Test Date: 2020-10-24 Test Time: 00:20:12 Anchor Tack Puller: COURTNEY MEASUREMENT RESULTS: Intervals: Rate: 78 [place]: 144 QRSD: 94 QT: 374 QTc: 426 [place]: P: 41 [place]: 144 QRS: 55 T: 65 INTERPRETIVE STATEMENTS: Normal sinus rhythm Normal ECG Compared to ECG 01/06/2018 11:58:18 Sinus bradycardia no longer present Electronically Signed On 10-24-20 16:04:03 CDT by Aram Rodriguez
[2020-10-26 09:14] LABS: Urine Blood Negative (Negative); Urine Glucose 2+ (Negative); Urine Protein Negative (Negative); Urine pH 5.5 (5.0-7.0)
== END 2020-10-24 05:43 | disposition home or self-care (01) ==
LOC: ER 23:52
DX: R00.2 Palpitations (principal); I10 Essential (primary) hypertension; F17.210 Nicotine dependence, cigarettes, uncomplicated
CPT/HCPCS: 36415; 71045; 80048; 80076; 80307; 81003; 83735; 83880; 84439; 84443; 84484; 85025; 85379; 85610; 93005; 99284

== ENCOUNTER 2024-11-30 06:25 | Emergency (ER) | payer BC ==
--- OUTSIDE RECORDS SUMMARY | 2024-11-30 06:30 | XMS REPORT | Continuity of Care Document ---
Author Name Unknown Address [address] [facility] [address] [place] [address] [facility] [place] Address [address] [facility] [address] [place] [address] Care Team Providers Care Plater Hot Dip Name Role Phone Roni Lino Attending Clinician Unavailable Payers Payer Name Policy Type Policy Number Effective Date Expirati on Date Source [facility] 6 [id number] 2020 00:00:00 [facility] Problems Condition Name Condition Details Condition Category Status Onset Date Resolution Date Last Treatment Date Treating Clinician Comments Source Malaise and fatigue Malaise and fatigue Problem [facility] Gastro-eso phageal reflux disease without esophagiti s Gastro-eso phageal reflux disease without esophagiti s Problem [facility] Chest pain Chest pain Problem [facility] Cellulitis Cellulitis Problem [facility] Tobacco use Tobacco use disorder Problem [facility] Primary hypersomni a Primary hypersomni a Problem [facility] [id number] Irritabili ty and anger Problem [facility] Left ventricula r hypertroph y Left ventricula r hypertroph y Problem [facility] [id number] HTN (hypertens ion), benign Problem [facility] [id number] Asymptomat ic hypertensi ve urgency Problem [facility] [id number] Body mass index [BMI] 34.0-34.9, adult Problem [facility] [id number] JERONIMO (obstructi ve sleep apnea) Problem [facility] [id number] Panic attack Problem [facility] [id number] Uncontroll ed type 2 diabetes mellitus without complicati on, without long-term current use of insulin Problem [facility] Benign essential hypertensi on Benign essential hypertensi on Problem [facility] [id number] Generalize d anxiety disorder Problem [facility] [id number] Mixed hyperlipid emia Problem [facility] [id number] Alcohol abuse Problem [facility] [id number] Noncomplia nce with dietary restrictio n Problem [facility] [id number] Repetitive intrusions of sleep Problem [facility] [id number] 00 Daytime somnolence Problem [facility] [id number] Other obesity due to excess calories Problem [facility] Social History Social Habit Start Date Stop Date Quantity Comments Source History of Tobacco Use Current Smoker [facility] Sex Assigned At [facility] Smoking Status Start Date Stop Date Source Current Smoker 2024-10-30 00:00:00 [facility] Medications Ordered Medication Name Filled Medication Name Start Date Stop Date Current Medication? Ordering Clinician Indication Dosage Frequency Signature (SIG) Comments Components Source clonazePAM 0.5 MG clonazePAM 0.5 MG 10-30 00:00: 00 No 1{table t} clonazePAM 0.5 MG Mounjaro 15 MG/0.5ML Mounjaro 15 MG/0.5ML 12-08 00:00: 00 No Mounjaro 15 MG/0.5ML Pantoprazol e Sodium 40 MG Pantoprazol e Sodium 40 MG No 1{table t} QD Pantoprazo le Sodium 40 MG Metoprolol Tartrate 50 MG Metoprolol Tartrate 50 MG No 1{table t_with_ food} BID Metoprolol Tartrate 50 MG Losartan Potassium 50 MG Losartan Potassium 50 MG No 1{table t} QD Losartan Potassium 50 MG Fenofibrate 145 MG Fenofibrate 145 MG No 1{table t_with_ food} QD Fenofibrat e 145 MG metFORMIN HCl ER 500 MG metFORMIN HCl ER 500 MG No 2{table ts} BID metFORMIN HCl ER 500 MG Atorvastati n Calcium 80 MG Atorvastati n Calcium 80 MG No Atorvastat in Calcium 80 MG amLODIPine Besylate 5 MG amLODIPine Besylate 5 MG No amLODIPine Besylate 5 MG Norvasc 5 MG Norvasc 5 MG No 1{table t} QD Norvasc 5 MG Farxiga 10 MG Farxiga 10 MG No QD Farxiga 10 MG Lipitor 80 MG Lipitor 80 MG No 1{table t} QD Lipitor 80 MG Citalopram Hydrobromid e 20 MG Citalopram Hydrobromid e 20 MG No 3{table t} QD Citalopram Hydrobromi de 20 MG Immunizations Ordered Immunization Name Filled Immunization Name Date Status Comments Source Boostrix (Tdap) Boostrix (Tdap) 2021-05-05 11:11:00 Completed [facility] Boostrix (Tdap) Boostrix (Tdap) 2021-05-05 11:11:00 Completed [facility] Boostrix (Tdap) Boostrix (Tdap) 2021-05-05 11:11:00 Completed [facility] Boostrix (Tdap) Boostrix (Tdap) 2021-05-05 11:11:00 Completed [facility] Boostrix (Tdap) Boostrix (Tdap) 2021-05-05 11:11:00 Completed [facility] Boostrix (Tdap) Boostrix (Tdap) 2021-05-05 11:11:00 Completed [facility] Boostrix (Tdap) Boostrix (Tdap) 2021-05-05 11:11:00 Completed [facility] Boostrix (Tdap) Boostrix (Tdap) 2021-05-05 11:11:00 Completed [facility] Boostrix (Tdap) Boostrix (Tdap) 2021-05-05 11:11:00 Completed [facility] Boostrix (Tdap) Boostrix (Tdap) 2021-05-05 11:11:00 Completed [facility] Boostrix (Tdap) Boostrix (Tdap) 2021-05-05 11:11:00 Completed [facility] Boostrix (Tdap) Boostrix (Tdap) 2021-05-05 11:11:00 Completed [facility] Boostrix (Tdap) Boostrix (Tdap) 2021-05-05 11:11:00 Completed [facility] Boostrix (Tdap) Boostrix (Tdap) 2021-05-05 11:11:00 Completed [facility] Boostrix (Tdap) Boostrix (Tdap) Unknown Completed [facility] Boostrix (Tdap) Boostrix (Tdap) Unknown Completed [facility] Boostrix (Tdap) Boostrix (Tdap) Unknown Completed [facility] Boostrix (Tdap) Boostrix (Tdap) Unknown Completed [facility] Boostrix (Tdap) Boostrix (Tdap) Unknown Completed [facility] Boostrix (Tdap) Boostrix (Tdap) Unknown Completed [facility] Boostrix (Tdap) Boostrix (Tdap) Unknown Completed [facility] Boostrix (Tdap) Boostrix (Tdap) Unknown Completed [facility] Boostrix (Tdap) Boostrix (Tdap) Unknown Completed [facility] Boostrix (Tdap) Boostrix (Tdap) Unknown Completed [facility] Boostrix (Tdap) Boostrix (Tdap) Unknown Completed [facility] Boostrix (Tdap) Boostrix (Tdap) Unknown Completed [facility] Boostrix (Tdap) Boostrix (Tdap) Unknown Completed [facility] Boostrix (Tdap) Boostrix (Tdap) Unknown Completed [facility] Boostrix (Tdap) Boostrix (Tdap) Unknown Completed [facility] Boostrix (Tdap) Boostrix (Tdap) Unknown Completed [facility] Vital Signs Vital Name Observation Time Observation Value Comments S ource height 2024-10-30 08:30:00 73 [in_i] [facility] weight 2024-10-30 08:30:00 258 [lb_av] Comm on [facility] temperature 2024-10-30 08:30:00 97.5 [degF] Com [facility] bmi 2024-10-30 08:30:00 34.04 kg/m2 Comm on [facility] oximetry 2024-10-30 08:30:00 97 % [facility] respiratory rate 2024-10-30 08:30:00 18 /min [facility] blood pressure systolic 2024-10-30 08:30:00 138 mm[Hg] [facility] blood pressure diastolic 2024-10-30 08:30:00 80 mm[Hg] [facility] height 2024-05-22 08:30:00 73 [in_i] [facility] weight 2024-05-22 08:30:00 256.8 [lb_av] [facility] temperature 2024-05-22 08:30:00 97.7 [degF] Com [facility] bmi 2024-05-22 08:30:00 33.88 kg/m2 Comm on [facility] oximetry 2024-05-22 08:30:00 98 % [facility] respiratory rate 2024-05-22 08:30:00 18 /min [facility] blood pressure systolic 2024-05-22 08:30:00 138 mm[Hg] [facility] blood pressure diastolic 2024-05-22 08:30:00 78 mm[Hg] [facility] height 2024-02-14 09:15:00 73 [in_i] [facility] weight 2024-02-14 09:15:00 249.6 [lb_av] Co [facility] temperature 2024-02-14 09:15:00 97.6 [degF] Com [facility] bmi 2024-02-14 09:15:00 32.93 kg/m2 Comm on [facility] oximetry 2024-02-14 09:15:00 98 % [facility] respiratory rate 2024-02-14 09:15:00 18 /min [facility] blood pressure systolic 2024-02-14 09:15:00 138 mm[Hg] [facility] blood pressure diastolic 2024-02-14 09:15:00 77 mm[Hg] [facility] height 2024-02-14 09:15:00 73 [in_i] [facility] n [facility] weight 2024-02-14 09:15:00 249.6 [lb_av] [facility] temperature 2024-02-14 09:15:00 97.6 [degF] Com [facility] bmi 2024-02-14 09:15:00 32.93 kg/m2 Comm on [facility] oximetry 2024-02-14 09:15:00 98 % [facility] respiratory rate 2024-02-14 09:15:00 18 /min [facility] blood pressure systolic 2024-02-14 09:15:00 138 mm[Hg] [facility] blood pressure diastolic 2024-02-14 09:15:00 77 mm[Hg] [facility] height 2023-10-04 09:20:00 73 [in_i] [facility] n [facility] weight 2023-10-04 09:20:00 259 [lb_av] Comm on [facility] temperature 2023-10-04 09:20:00 96.8 [degF] Com [facility] bmi 2023-10-04 09:20:00 34.17 kg/m2 Comm on [facility] oximetry 2023-10-04 09:20:00 98 % [facility] blood pressure systolic 2023-10-04 09:20:00 138 mm[Hg] Common [facility] blood pressure diastolic 2023-10-04 09:20:00 76 mm[Hg] [facility] height 2023-05-31 09:10:00 73 [in_i] [facility] weight 2023-05-31 09:10:00 264.8 [lb_av] [facility] temperature 2023-05-31 09:10:00 97.6 [degF] Com [facility] bmi 2023-05-31 09:10:00 34.93 kg/m2 Comm on [facility] oximetry 2023-05-31 09:10:00 97 % [facility] blood pressure systolic 2023-05-31 09:10:00 122 mm[Hg] [facility] blood pressure diastolic 2023-05-31 09:10:00 76 mm[Hg] [facility] height 2023-05-31 09:10:00 73 [in_i] [facility] weight 2023-05-31 09:10:00 264.8 [lb_av] [facility] temperature 2023-05-31 09:10:00 97.6 [degF] Com mon [facility] bmi 2023-05-31 09:10:00 34.93 kg/m2 Comm on [facility] oximetry 2023-05-31 09:10:00 97 % [facility] blood pressure systolic 2023-05-31 09:10:00 122 mm[Hg] [facility] blood pressure diastolic 2023-05-31 09:10:00 76 mm[Hg] [facility] height 2023-03-01 10:00:00 73 [in_i] [facility] n [facility] weight 2023-03-01 10:00:00 242 [lb_av] Comm on [facility] bmi 2023-03-01 10:00:00 31.92 kg/m2 Comm on [facility] blood pressure systolic 2023-03-01 10:00:00 132 mm[Hg] [facility] blood pressure diastolic 2023-03-01 10:00:00 77 mm[Hg] [facility] height 2022-11-23 08:10:00 73 [in_i] [facility] weight 2022-11-23 08:10:00 255.6 [lb_av] [facility] temperature 2022-11-23 08:10:00 97.6 [degF] Com mon [facility] bmi 2022-11-23 08:10:00 33.72 kg/m2 Comm on [facility] oximetry 2022-11-23 08:10:00 96 % [facility] respiratory rate 2022-11-23 08:10:00 18 /min [facility] blood pressure systolic 2022-11-23 08:10:00 138 mm[Hg] [facility] blood pressure diastolic 2022-11-23 08:10:00 76 mm[Hg] [facility] height 2022-08-10 09:20:00 73 [in_i] Commo n [facility] weight 2022-08-10 09:20:00 272 [lb_av] Comm on [facility] temperature 2022-08-10 09:20:00 96.8 [degF] Com mon [facility] bmi 2022-08-10 09:20:00 35.88 kg/m2 Comm on [facility] oximetry 2022-08-10 09:20:00 92 % [facility] respiratory rate 2022-08-10 09:20:00 16 /min [facility] blood pressure systolic 2022-08-10 09:20:00 138 mm[Hg] [facility] blood pressure diastolic 2022-08-10 09:20:00 70 mm[Hg] Common [facility] height 2022-05-11 11:00:00 73 [in_i] Com[facility] weight 2022-05-11 11:00:00 278.2 [lb_av] [facility] temperature 2022-05-11 11:00:00 97.3 [degF] Com [facility] bmi 2022-05-11 11:00:00 36.7 kg/m2 [facility] oximetry 2022-05-11 11:00:00 95 % [facility] respiratory rate 2022-05-11 11:00:00 16 /min [facility] blood pressure systolic 2022-05-11 11:00:00 139 mm[Hg] [facility] blood pressure diastolic 2022-05-11 11:00:00 73 mm[Hg] Common [facility] height 2022-03-22 11:10:00 73 [in_i] [facility] weight 2022-03-22 11:10:00 282 [lb_av] Comm on [facility] temperature 2022-03-22 11:10:00 95.9 [degF] Com mon [facility] bmi 2022-03-22 11:10:00 37.2 kg/m2 [facility] oximetry 2022-03-22 11:10:00 94 % [facility] respiratory rate 2022-03-22 11:10:00 16 /min [facility] blood pressure systolic 2022-03-22 11:10:00 136 mm[Hg] [facility] blood pressure diastolic 2022-03-22 11:10:00 75 mm[Hg] [facility] height 2022-02-05 08:30:00 73 [in_i] [facility] weight 2022-02-05 08:30:00 284.8 [lb_av] [facility] temperature 2022-02-05 08:30:00 97.1 [degF] Com [facility] bmi 2022-02-05 08:30:00 37.57 kg/m2 Comm on [facility] oximetry 2022-02-05 08:30:00 95 % [facility] respiratory rate 2022-02-05 08:30:00 16 /min [facility] blood pressure systolic 2022-02-05 08:30:00 137 mm[Hg] [facility] blood pressure diastolic 2022-02-05 08:30:00 74 mm[Hg] [facility] height 2022-01-05 09:50:00 73 [in_i] Com[facility] n [facility] weight 2022-01-05 09:50:00 280 [lb_av] Comm on [facility] temperature 2022-01-05 09:50:00 97.5 [degF] Com mon [facility] bmi 2022-01-05 09:50:00 36.94 kg/m2 Comm on [facility] oximetry 2022-01-05 09:50:00 98 % Com[facility] respiratory rate 2022-01-05 09:50:00 17 /min [facility] blood pressure systolic 2022-01-05 09:50:00 139 mm[Hg] [facility] blood pressure diastolic 2022-01-05 09:50:00 87 mm[Hg] [facility] height 2021-12-01 10:20:00 73 [in_i] [facility] weight 2021-12-01 10:20:00 280 [lb_av] Comm on [facility] temperature 2021-12-01 10:20:00 97.9 [degF] Com [facility] bmi 2021-12-01 10:20:00 36.94 kg/m2 Comm on [facility] oximetry 2021-12-01 10:20:00 97 % Com[facility] respiratory rate 2021-12-01 10:20:00 18 /min [facility] blood pressure systolic 2021-12-01 10:20:00 132 mm[Hg] [facility] blood pressure diastolic 2021-12-01 10:20:00 73 mm[Hg] [facility] height 2021-11-03 09:40:00 73 [in_i] Commo n [facility] weight 2021-11-03 09:40:00 278 [lb_av] Comm on [facility] temperature 2021-11-03 09:40:00 97.6 [degF] Com [facility] bmi 2021-11-03 09:40:00 36.67 kg/m2 Comm on [facility] oximetry 2021-11-03 09:40:00 99 % Com[facility] respiratory rate 2021-11-03 09:40:00 18 /min [facility] blood pressure systolic 2021-11-03 09:40:00 134 mm[Hg] [facility] blood pressure diastolic 2021-11-03 09:40:00 78 mm[Hg] [facility] height 2021-08-04 09:20:00 74 [in_i] Commo n [facility] weight 2021-08-04 09:20:00 296.0 [lb_av] Co [facility] temperature 2021-08-04 09:20:00 97.3 [degF] Com [facility] bmi 2021-08-04 09:20:00 38 kg/m2 Com[facility] oximetry 2021-08-04 09:20:00 96 % Com[facility] n [facility] respiratory rate 2021-08-04 09:20:00 16 /min [facility] blood pressure systolic 2021-08-04 09:20:00 135 mm[Hg] [facility] blood pressure diastolic 2021-08-04 09:20:00 72 mm[Hg] [facility] height 2021-05-05 10:50:00 74 [in_i] Commo n [facility] weight 2021-05-05 10:50:00 279.6 [lb_av] Co [facility] temperature 2021-05-05 10:50:00 97.3 [degF] Com [facility] bmi 2021-05-05 10:50:00 35.89 kg/m2 Comm on [facility] oximetry 2021-05-05 10:50:00 96 % Com[facility] respiratory rate 2021-05-05 10:50:00 17 /min [facility] blood pressure systolic 2021-05-05 10:50:00 132 mm[Hg] [facility] blood pressure diastolic 2021-05-05 10:50:00 76 mm[Hg] [facility] height 2021-03-31 10:40:00 74 [in_i] Commo n [facility] weight 2021-03-31 10:40:00 278.4 [lb_av] [facility] temperature 2021-03-31 10:40:00 97.0 [degF] Com mon [facility] bmi 2021-03-31 10:40:00 35.74 kg/m2 Comm on [facility] oximetry 2021-03-31 10:40:00 96 % Com[facility] respiratory rate 2021-03-31 10:40:00 17 /min [facility] blood pressure systolic 2021-03-31 10:40:00 135 mm[Hg] [facility] blood pressure diastolic 2021-03-31 10:40:00 72 mm[Hg] [facility] height 2021-03-03 08:50:00 74 [in_i] Commo n [facility] weight 2021-03-03 08:50:00 281.4 [lb_av] [facility] temperature 2021-03-03 08:50:00 97.9 [degF] Com mon [facility] bmi 2021-03-03 08:50:00 36.13 kg/m2 Comm on [facility] oximetry 2021-03-03 08:50:00 96 % Commo [facility] respiratory rate 2021-03-03 08:50:00 18 /min [facility] blood pressure systolic 2021-03-03 08:50:00 132 mm[Hg] [facility] blood pressure diastolic 2021-03-03 08:50:00 75 mm[Hg] [facility] height 2021-01-25 16:20:00 74 [in_i] Commo n [facility] weight 2021-01-25 16:20:00 285.6 [lb_av] Co [facility] temperature 2021-01-25 16:20:00 97.2 [degF] Com mon [facility] bmi 2021-01-25 16:20:00 36.66 kg/m2 Comm on [facility] oximetry 2021-01-25 16:20:00 95 % Commo n [facility] respiratory rate 2021-01-25 16:20:00 19 /min [facility] blood pressure systolic 2021-01-25 16:20:00 138 mm[Hg] [facility] blood pressure diastolic 2021-01-25 16:20:00 76 mm[Hg] [facility] Encounters Start Date/Time End Date/Time Encounter Type Admission Type Attending [facility] Care Facility Care Department Encounter ID Source 2024-05-20 10:31:00 [facility] [id number] [facility] 2023-10-04 09:06:00 [facility] [id number] [facility] 2022-03-21 13:58:01 [facility] [id number] [facility] 2022-02-01 08:54:01 [facility] [id number] [facility] 2021-10-24 15:24:00 [facility] [id number] [facility] 2021-05-10 14:36:38 [facility] [id number] [facility] 2021-05-10 14:15:14 Outpatient Lino, Roni [facility] [id number] [facility] 2021-05-10 13:45:16 Outpatient Lino, Roni [facility] [id number] [facility] 2021-05-10 13:39:35 Outpatient Lino, Roni [facility] [id number] [facility] 2021-05-10 13:39:22 Outpatient Lino, Roni [facility] [id number] [facility] 2021-05-10 13:26:42 Outpatient Lino, Roni [facility] [id number] [facility] 2021-05-10 13:12:35 Outpatient Lino, Roni [facility] [id number] [facility] 2021-05-10 12:27:54 Outpatient Lino, Roni [facility] [id number] [facility] 2021-05-10 12:25:13 Outpatient Lino, Roni [facility] [id number] [facility] 2021-05-10 11:58:33 Outpatient Lino, Roni [facility] [id number] [facility] 2021-05-10 11:55:18 Outpatient Lino, Roni [facility] [id number] [facility] 2021-05-10 11:52:45 Outpatient Lino, Roni [facility] [id number] [facility] 2021-05-10 11:52:12 Outpatient Lino, Roni [facility] [id number] [facility] 2021-05-10 11:01:11 Outpatient Lino, Roni [facility] [id number] [facility] 2024-11-17 00:00:00 2024-11-17 00:00:00 (TEL) [facility] [id number] [facility] 2024-11-15 00:00:00 2024-11-15 00:00:00 (WEB) [facility] [id number] [facility] 2024-10-30 00:00:00 2024-10-30 00:00:00 OFFICE VISIT ESTAB PT LEVEL 4 [facility] [id number] [facility] 2024-10-21 00:00:00 2024-10-21 00:00:00 (WEB) [facility] [id number] [facility] 2024-10-06 00:00:00 2024-10-06 00:00:00 (WEB) [facility] [id number] [facility] 2024-07-20 00:00:00 2024-07-20 00:00:00 (WEB) [facility] [id number] [facility] 2024-06-24 00:00:00 2024-06-24 00:00:00 (TEL) [facility] [id number] [facility] 2024-05-22 00:00:00 2024-05-22 00:00:00 (ESTPT) Establishe d Patient [facility] [id number] [facility] 2024-03-24 00:00:00 2024-03-24 00:00:00 (WEB) [facility] [id number] [facility] 2024-02-14 00:00:00 2024-02-14 00:00:00 OFFICE VISIT ESTAB PT LEVEL 4 [facility] [id number] [facility] 2024-01-22 00:00:00 2024-01-22 00:00:00 (WEB) STLMLC STLMLC [id number] [facility] 2023-12-17 00:00:00 2023-12-17 00:00:00 (WEB) STLMLC STLMLC [id number] [facility] 2023-12-09 00:00:00 2023-12-09 00:00:00 (WEB) STLMLC STLMLC [id number] [facility] 2023-10-31 00:00:00 2023-10-31 00:00:00 (WEB) STLMLC STLMLC [id number] [facility] 2023-10-31 00:00:00 2023-10-31 00:00:00 (WEB) STLMLC STLMLC [id number] [facility] 2023-10-30 00:00:00 2023-10-30 00:00:00 (WEB) STLMLC STLMLC [id number] [facility] 2023-10-04 00:00:00 2023-10-04 00:00:00 OFFICE VISIT ESTAB PT LEVEL 4 STLMLC STLMLC [id number] [facility] 2023-10-01 00:00:00 2023-10-01 00:00:00 (TEL) STLMLC STLMLC [id number] [facility] 2023-07-09 00:00:00 2023-07-09 00:00:00 (WEB) STLMLC STLMLC [id number] [facility] 2023-05-31 00:00:00 2023-05-31 00:00:00 (WELLNESS) Wellness Visit STLMLC STLMLC [id number] [facility] 2023-03-01 00:00:00 2023-03-01 00:00:00 OFFICE VISIT ESTAB PT LEVEL 4 STLMLC STLMLC [id number] [facility] 2023-02-20 00:00:00 2023-02-20 00:00:00 (WEB) STLMLC STLMLC [id number] [facility] 2023-01-02 00:00:00 2023-01-02 00:00:00 (WEB) STLMLC STLMLC [id number] [facility] 2022-12-07 00:00:00 2022-12-07 00:00:00 (TEL) STLMLC STLMLC [id number] [facility] 2022-11-27 00:00:00 2022-11-27 00:00:00 (TEL) STLMLC STLMLC [id number] [facility] 2022-11-26 00:00:00 2022-11-26 00:00:00 (WEB) STLMLC STLMLC [id number] [facility] 2022-11-26 00:00:00 2022-11-26 00:00:00 (WEB) STLMLC STLMLC [id number] [facility] 2022-11-23 00:00:00 2022-11-23 00:00:00 OFFICE VISIT ESTAB PT LEVEL 4 STLMLC STLMLC [id number] [facility] 2022-10-03 00:00:00 2022-10-03 00:00:00 (WEB) STLMLC STLMLC [id number] [facility] 2022-08-10 00:00:00 2022-08-10 00:00:00 OFFICE VISIT ESTAB PT LEVEL 4 STLMLC STLMLC [id number] [facility] 2022-08-10 00:00:00 2022-08-10 00:00:00 (TEL) STLMLC STLMLC [id number] [facility] 2022-07-22 00:00:00 2022-07-22 00:00:00 (WEB) STLMLC STLMLC [id number] [facility] 2022-06-15 00:00:00 2022-06-15 00:00:00 (WEB) STLMLC STLMLC [id number] [facility] 2022-05-13 00:00:00 2022-05-13 00:00:00 (WEB) STLMLC STLMLC [id number] [facility] 2022-05-11 00:00:00 2022-05-11 00:00:00 (WELLNESS) Wellness Visit STLMLC STLMLC [id number] [facility] 2022-04-26 00:00:00 2022-04-26 00:00:00 (WEB) STLMLC STLMLC [id number] [facility] 2022-03-22 00:00:00 2022-03-22 00:00:00 OFFICE VISIT ESTAB PT LEVEL 4 STLMLC STLMLC [id number] [facility] 2022-03-16 00:00:00 2022-03-16 00:00:00 (TEL) STLMLC STLMLC [id number] [facility] 2022-03-12 00:00:00 2022-03-12 00:00:00 (WEB) STLMLC STLMLC [id number] [facility] 2022-03-01 00:00:00 2022-03-01 00:00:00 (WEB) STLMLC STLMLC [id number] [facility] 2022-02-05 00:00:00 2022-02-05 00:00:00 OFFICE VISIT ESTAB PT LEVEL 4 STLMLC STLMLC [id number] [facility] 2022-01-09 00:00:00 2022-01-09 00:00:00 (WEB) STLMLC STLMLC [id number] [facility] 2022-01-05 00:00:00 2022-01-05 00:00:00 (WEB) STLMLC STLMLC [id number] [facility] 2022-01-05 00:00:00 2022-01-05 00:00:00 OFFICE VISIT ESTAB PT LEVEL 4 STLMLC STLMLC [id number] [facility] 2021-12-01 00:00:00 2021-12-01 00:00:00 OFFICE VISIT ESTAB PT LEVEL 4 STLMLC STLMLC [id number] [facility] 2021-11-03 00:00:00 2021-11-03 00:00:00 OFFICE VISIT ESTAB PT LEVEL 4 STLMLC STLMLC [id number] [facility] 2021-10-31 00:00:00 2021-10-31 00:00:00 (TEL) STLMLC STLMLC [id number] [facility] 2021-08-04 00:00:00 2021-08-04 00:00:00 OFFICE VISIT ESTAB PT LEVEL 4 STLMLC STLMLC [id number] [facility] 2021-06-15 00:00:00 2021-06-15 00:00:00 (WEB) STLMLC STLMLC [id number] [facility] 2021-05-05 00:00:00 2021-05-05 00:00:00 PREV VISIT EST AGE 40-64 STLMLC STLMLC [id number] [facility] 2021-03-31 00:00:00 2021-03-31 00:00:00 OFFICE VISIT ESTAB PT LEVEL 4 STLMLC STLMLC [id number] [facility] 2021-03-03 00:00:00 2021-03-03 00:00:00 OFFICE VISIT ESTAB PT LEVEL 4 STLMLC STLMLC [id number] [facility] 2021-01-25 00:00:00 2021-01-25 00:00:00 OFFICE VISIT ESTAB PT LEVEL 4 STLMLC STLMLC [id number] [facility] 2020-12-08 00:00:00 2020-12-08 00:00:00 Outpatient STLMLC STLMLC [id number] [facility] 2020-11-30 00:00:00 2020-11-30 00:00:00 Outpatient STLMLC STLMLC [id number] [facility] 2020-11-29 00:00:00 2020-11-29 00:00:00 Outpatient STLMLC STLMLC [id number] [facility] 2020-11-29 00:00:00 2020-11-29 00:00:00 Outpatient STLMLC STLMLC [id number] [facility] 2020-10-27 00:00:00 2020-10-27 00:00:00 Outpatient STLMLC STLMLC [id number] [facility] 2020-09-21 00:00:00 2020-09-21 00:00:00 Outpatient STLMLC STLMLC [id number] [facility] 2020-05-24 00:00:00 2020-05-24 00:00:00 Outpatient STLMLC STLMLC [id number] [facility] 2020-02-11 00:00:00 2020-02-11 00:00:00 Outpatient STLMLC STLMLC [id number] [facility] 2019-11-10 16:30:00 2019-11-10 16:30:[address] [facility] [id number] [facility] 2019-08-11 15:15:00 2019-08-11 15:15:[address] [facility] [id number] [facility] 2019-05-15 13:45:00 2019-05-15 13:45:00 [facility] [id number] [facility] 2019-05-12 16:30:00 2019-05-12 16:30:[address] [facility] [id number] [facility] 2019-05-04 08:43:00 2019-05-04 08:43:[address] [facility] [id number] [facility] 2019-04-30 13:15:00 2019-04-30 13:15:[address] [facility] [id number] [facility] 2019-03-02 07:18:00 2019-03-02 07:18:[address] [facility] [id number] [facility] 2019-02-26 15:00:00 2019-02-26 15:00:00 [facility] [id number] [facility] 2019-02-10 10:33:00 2019-02-10 10:33:[address] [facility] [id number] [facility] 2019-02-09 11:06:00 2019-02-09 11:06:[address] [facility] [id number] [facility] 2019-01-06 16:30:00 2019-01-06 16:30:[address] [facility] [id number] [facility] 2018-09-29 14:15:00 2018-09-29 14:15:[address] [facility] [id number] [facility] 2018-07-01 09:41:00 2018-07-01 09:41:[address] [facility] [id number] [facility] 2018-06-30 13:00:00 2018-06-30 13:00:[address] [facility] [id number] [facility] 2018-03-31 13:45:00 2018-03-31 13:45:[address] [facility] [id number] [facility] 2018-03-26 11:26:00 2018-03-26 11:26:[address] [facility] [id number] [facility] 2018-01-07 10:15:00 2018-01-07 10:15:00 [facility] [id number] [facility] 2017-12-05 14:00:00 2017-12-05 14:00:00 [facility] [id number] [facility] 2017-11-04 13:00:00 2017-11-04 13:00:[address] [facility] [id number] [facility] 2017-10-01 09:15:00 2017-10-01 09:15:[address] [facility] [id number] [facility] 2017-09-18 12:07:00 2017-09-18 12:07:00 [facility] [id number] [facility] 2017-09-11 10:35:00 2017-09-11 10:35:00 Outpatient [facility] [id number] [facility] 2017-08-28 15:30:00 2017-08-28 15:30:00 Outpatient [facility] [id number] [facility] Results Test Description Test Time Test Comments Results Result Co mments Source REFLEXIVE URINE [id number] 00:00:00REFLEXIVE URINE CULTURECOMPREHENSIVE METABOLIC [id number] 00:00:00* Test Item Value Reference Range Interpretation Comme nts NUCLEATED RBCS (test code = 90022-7) 0.0 /100 WBC'S See_Comment [Automated message] The system which generated this result transmitted reference range: 0.0 /100 WBC'S. The reference range was not used to interpret this result as normal/abnormal. ABSOLUTE EOSINOPHILS (test code = 87769-9) 0.11 K/UL See_Comment [Automated message] The system which generated this result transmitted reference range: 0.00-0.50 K/UL. The reference range was not used to interpret this result as normal/abnormal. ABSOLUTE LYMPHOCYTES (test code = 43539-1) 2.69 K/UL See_Comment [Automated message] The system which generated this result transmitted reference range: 1.00-4.00 K/UL. The reference range was not used to interpret this result as normal/abnormal. ABSOLUTE MONOCYTES (test code = 54987-4) 0.64 K/UL See_Comment [Automated message] The system which generated this result transmitted reference range: 0.20-1.00 K/UL. The reference range was not used to interpret this result as normal/abnormal. ABSOLUTE NEUTROPHILS (test code = 25964-7) 6.22 K/UL See_Comment [Automated message] The system which generated this result transmitted reference range: 1.50-7.50 K/UL. The reference range was not used to interpret this result as normal/abnormal. BASOPHILS (test code = 44388-7) 0.8 % EOSINOPHILS (test code = 76323-9) 1.1 % HEMATOCRIT (test code = 32472-4) 46.3 % See_Comment [Automated messa ge] The system which generated this result transmitted reference range: 40.0-51.0 %. The reference range was not used to interpret this result as normal/abnormal. HEMOGLOBIN (test code = 718-7) 15.7 G/DL See_Comment [Automated messa ge] The system which generated this result transmitted reference range: 13.5-17.0 G/DL. The reference range was not used to interpret this result as normal/abnormal. LYMPHOCYTES (test code = 58866-6) 27.1 % MCH (test code = 90437-1) 30.8 PG See_Comment [Automated messa ge] The system which generated this result transmitted reference range: 25.0-33.0 PG. The reference range was not used to interpret this result as normal/abnormal. MCHC (test code = 50204-0) 33.9 G/DL See_Comment [Automated messa ge] The system which generated this result transmitted reference range: 31.0-36.0 G/DL. The reference range was not used to interpret this result as normal/abnormal. MCV (test code = 21071-3) 91.0 fL See_Comment [Automated [place]] The system which generated this result transmitted reference range: 80.0-99.0 fL. The reference range was not used to interpret this result as normal/abnormal. MONOCYTES (test code = 61303-6) 6.5 % NEUTROPHILS (test code = 91772-5) 62.8 % PLATELET COUNT (test code = 10394-6) 262 K/UL See_Comment [Automated messa ge] The system which generated this result transmitted reference range: 130-400 K/UL. The reference range was not used to interpret this result as normal/abnormal. RBC (test code = 16329-0) 5.09 M/UL See_Comment [Automated messa ge] The system which generated this result transmitted reference range: 4.50-6.10 M/UL. The reference range was not used to interpret this result as normal/abnormal. RDW (test code = 44600-5) 12.5 % See_Comment [Automated messa ge] The system which generated this result transmitted reference range: 11.5-15.0 %. The reference range was not used to interpret this result as normal/abnormal. WBC (test code = 42260-8) 9.9 K/UL See_Comment [Automated messa ge] The system which generated this result transmitted reference range: 3.5-11.0 K/UL. The reference range was not used to interpret this result as normal/abnormal. HEMOGLOBIN A1c (test code = 4548-4) 8.2 % See_Comment H [Automated [place]] The system which generated this result transmitted reference range: 4.2-5.6 %. The reference range was not used to interpret this result as normal/abnormal. CALC LDL CHOL (test code = 80771-3) 58 MG/DL See_Comment [Automated [place]] The system which generated this result transmitted reference range: <100 MG/DL. The reference range was not used to interpret this result as normal/abnormal. CHOLESTEROL (test code = 2093-3) 125 MG/DL See_Comment [Automated [place]] The system which generated this result transmitted reference range: <200 MG/DL. The reference range was not used to interpret this result as normal/abnormal. HDL CHOLESTEROL (test code = 2085-9) 40 MG/DL See_Comment [Automated [place]] The system which generated this result transmitted reference range: >39 MG/DL. The reference range was not used to interpret this result as normal/abnormal. RISK RATIO LDL/HDL (test code = 22856-0) 1.45 RATIO See_Comment [Automated message] The system which generated this result transmitted reference range: <3.55 RATIO. The reference range was not used to interpret this result as normal/abnormal. TRIGLYCERIDES (test code = 2571-8) 195 MG/DL See_Comment H [Automated messa ge] The system which generated this result transmitted reference range: <150 MG/DL. The reference range was not used to interpret this result as normal/abnormal. ALBUMIN, URINE, RANDOM (test code = 20046-8) 1.7 MG/DL NOT ESTAB MG/DL CALC ALBUMIN/CREAT, RND (test code = 20579-8) 12 MG/G See_Comment [Automated [place]] The system which generated this result transmitted reference range: <30 MG/G. The reference range was not used to interpret this result as normal/abnormal. CREATININE, URINE, CONC. (test code = 2161-8) 141.2 MG/DL NOT ESTAB MG/DL ALBUMIN (test code = 1751-7) 4.5 G/DL See_Comment [Automated [place]] The system which generated this result transmitted reference range: 3.5-5.2 G/DL. The reference range was not used to interpret this result as normal/abnormal. ALKALINE PHOSPHATASE (test code = 6768-6) 79 U/L See_Comment [Automated message] The system which generated this result transmitted reference range: 40-118 U/L. The reference range was not used to interpret this result as normal/abnormal. BILIRUBIN, TOTAL (test code = 1975-2) 0.5 MG/DL See_Comment [Automated [place]] The system which generated this result transmitted reference range: <=1.2 MG/DL. The reference range was not used to interpret this result as normal/abnormal. BUN (test code = 3094-0) 14 MG/DL See_Comment [Automated [place]] The system which generated this result transmitted reference range: 6-20 MG/DL. The reference range was not used to interpret this result as normal/abnormal. CALCIUM (test code = 90141-5) 9.8 MG/DL See_Comment [Automated [place]] The system which generated this result transmitted reference range: 8.5-10.5 MG/DL. The reference range was not used to interpret this result as normal/abnormal. CALC A/G RATIO (test code = 1759-0) 2.3 RATIO See_Comment [Automated [place]] The system which generated this result transmitted reference range: 1.0-2.6 RATIO. The reference range was not used to interpret this result as normal/abnormal. CALC BUN/CREAT (test code = 3097-3) 16 RATIO See_Comment [Automated messa ge] The system which generated this result transmitted reference range: 6-28 RATIO. The reference range was not used to interpret this result as normal/abnormal. CALC GLOBULIN (test code = 74024-1) 2.0 G/DL See_Comment [Automated messa ge] The system which generated this result transmitted reference range: 1.9-3.7 G/DL. The reference range was not used to interpret this result as normal/abnormal. CARBON DIOXIDE (test code = 1963-8) 24 MEQ/L See_Comment [Automated messa ge] The system which generated this result transmitted reference range: 19-31 MEQ/L. The reference range was not used to interpret this result as normal/abnormal. CHLORIDE (test code = 2075-0) 102 MEQ/L See_Comment [Automated messa ge] The system which generated this result transmitted reference range: 95-107 MEQ/L. The reference range was not used to interpret this result as normal/abnormal. CREATININE (test code = 2160-0) 0.89 MG/DL See_Comment [Automated messa ge] The system which generated this result transmitted reference range: 0.80-1.40 MG/DL. The reference range was not used to interpret this result as normal/abnormal. eGFR (2020 CKD-EPI) (test code = 83222-0) 106 ML/MIN/1.73 See_Comment [Automated message] The system which generated this result transmitted reference range: >60 ML/MIN/1.73. The reference range was not used to interpret this result as normal/abnormal. GLUCOSE (test code = 1558-6) 168 MG/DL See_Comment H [Automated messa ge] The system which generated this result transmitted reference range: 70-99 MG/DL. The reference range was not used to interpret this result as normal/abnormal. POTASSIUM (test code = 2823-3) 4.0 MEQ/L See_Comment [Automated messa ge] The system which generated this result transmitted reference range: 3.5-5.4 MEQ/L. The reference range was not used to interpret this result as normal/abnormal. PROTEIN, TOTAL (test code = 2885-2) 6.5 G/DL See_Comment [Automated messa ge] The system which generated this result transmitted reference range: 6.1-8.3 G/DL. The reference range was not used to interpret this result as normal/abnormal. AST (test code = 1920-8) 17 U/L See_Comment [Automated messa ge] The system which generated this result transmitted reference range: 9-50 U/L. The reference range was not used to interpret this result as normal/abnormal. ALT (test code = 1742-6) 29 U/L See_Comment [Automated messa ge] The system which generated this result transmitted reference range: 5-50 U/L. The reference range was not used to interpret this result as normal/abnormal. SODIUM (test code = 2951-2) 139 MEQ/L See_Comment [Automated messa ge] The system which generated this result transmitted reference range: 133-146 MEQ/L. The reference range was not used to interpret this result as normal/abnormal. CBC W/AUTO [id number] 00:00:00* Test Item Value Reference Range Interpretation Comme nts NUCLEATED RBCS (test code = 05956-9) 0.0 /100 WBC'S See_Comment [Automated messa ge] The system which generated this result transmitted reference range: 0.0 /100 WBC'S. The reference range was not used to interpret this result as normal/abnormal. ABSOLUTE EOSINOPHILS (test code = 61769-1) 0.12 K/UL See_Comment [Automated messa ge] The system which generated this result transmitted reference range: 0.00-0.50 K/UL. The reference range was not used to interpret this result as normal/abnormal. ABSOLUTE LYMPHOCYTES (test code = 51722-6) 2.43 K/UL See_Comment [Automated messa ge] The system which generated this result transmitted reference range: 1.00-4.00 K/UL. The reference range was not used to interpret this result as normal/abnormal. ABSOLUTE MONOCYTES (test code = 17764-2) 0.70 K/UL See_Comment [Automated messa ge] The system which generated this result transmitted reference range: 0.20-1.00 K/UL. The reference range was not used to interpret this result as normal/abnormal. ABSOLUTE NEUTROPHILS (test code = 76124-4) 7.47 K/UL See_Comment [Automated messa ge] The system which generated this result transmitted reference range: 1.50-7.50 K/UL. The reference range was not used to interpret this result as normal/abnormal. BASOPHILS (test code = 43731-6) 0.7 % EOSINOPHILS (test code = 68634-9) 1.1 % HEMATOCRIT (test code = 29186-9) 47.1 % See_Comment [Automated messa ge] The system which generated this result transmitted reference range: 40.0-51.0 %. The reference range was not used to interpret this result as normal/abnormal. HEMOGLOBIN (test code = 718-7) 16.1 G/DL See_Comment [Automated messa ge] The system which generated this result transmitted reference range: 13.5-17.0 G/DL. The reference range was not used to interpret this result as normal/abnormal. LYMPHOCYTES (test code = 67188-1) 22.4 % MCH (test code = 76969-8) 31.2 PG See_Comment [Automated messa ge] The system which generated this result transmitted reference range: 25.0-33.0 PG. The reference range was not used to interpret this result as normal/abnormal. MCHC (test code = 97368-5) 34.2 G/DL See_Comment [Automated messa ge] The system which generated this result transmitted reference range: 31.0-36.0 G/DL. The reference range was not used to interpret this result as normal/abnormal. MCV (test code = 04590-9) 91.3 fL See_Comment [Automated messa ge] The system which generated this result transmitted reference range: 80.0-99.0 fL. The reference range was not used to interpret this result as normal/abnormal. MONOCYTES (test code = 02178-7) 6.5 % NEUTROPHILS (test code = 38674-5) 68.9 % PLATELET COUNT (test code = 45916-8) 239 K/UL See_Comment [Automated messa ge] The system which generated this result transmitted reference range: 130-400 K/UL. The reference range was not used to interpret this result as normal/abnormal. RBC (test code = 55641-1) 5.16 M/UL See_Comment [Automated messa ge] The system which generated this result transmitted reference range: 4.50-6.10 M/UL. The reference range was not used to interpret this result as normal/abnormal. RDW (test code = 36177-5) 13.3 % See_Comment [Automated messa ge] The system which generated this result transmitted reference range: 11.5-15.0 %. The reference range was not used to interpret this result as normal/abnormal. WBC (test code = 71502-2) 10.8 K/UL See_Comment [Automated messa ge] The system which generated this result transmitted reference range: 3.5-11.0 K/UL. The reference range was not used to interpret this result as normal/abnormal. CBC W/AUTO [id number] 00:00:00* Test Item Value Reference Range Interpretation Comme nts NUCLEATED RBCS (test code = 27611-8) 0.0 /100 WBC'S See_Comment [Automated messa ge] The system which generated this result transmitted reference range: 0.0 /100 WBC'S. The reference range was not used to interpret this result as normal/abnormal. ABSOLUTE EOSINOPHILS (test code = 00599-6) 0.11 K/UL See_Comment [Automated messa ge] The system which generated this result transmitted reference range: 0.00-0.50 K/UL. The reference range was not used to interpret this result as normal/abnormal. ABSOLUTE LYMPHOCYTES (test code = 76110-6) 2.92 K/UL See_Comment [Automated messa ge] The system which generated this result transmitted reference range: 1.00-4.00 K/UL. The reference range was not used to interpret this result as normal/abnormal. ABSOLUTE MONOCYTES (test code = 17562-6) 0.66 K/UL See_Comment [Automated messa ge] The system which generated this result transmitted reference range: 0.20-1.00 K/UL. The reference range was not used to interpret this result as normal/abnormal. ABSOLUTE NEUTROPHILS (test code = 86262-2) 5.19 K/UL See_Comment [Automated messa ge] The system which generated this result transmitted reference range: 1.50-7.50 K/UL. The reference range was not used to interpret this result as normal/abnormal. BASOPHILS (test code = 12348-4) 1.0 % EOSINOPHILS (test code = 40321-2) 1.2 % HEMATOCRIT (test code = 80365-9) 42.8 % See_Comment [Automated messa ge] The system which generated this result transmitted reference range: 40.0-51.0 %. The reference range was not used to interpret this result as normal/abnormal. HEMOGLOBIN (test code = 718-7) 14.7 G/DL See_Comment [Automated messa ge] The system which generated this result transmitted reference range: 13.5-17.0 G/DL. The reference range was not used to interpret this result as normal/abnormal. LYMPHOCYTES (test code = 44608-9) 32.3 % MCH (test code = 16001-7) 30.3 PG See_Comment [Automated messa ge] The system which generated this result transmitted reference range: 25.0-33.0 PG. The reference range was not used to interpret this result as normal/abnormal. MCHC (test code = 52750-9) 34.3 G/DL See_Comment [Automated messa ge] The system which generated this result transmitted reference range: 31.0-36.0 G/DL. The reference range was not used to interpret this result as normal/abnormal. MCV (test code = 68174-9) 88.2 fL See_Comment [Automated messa ge] The system which generated this result transmitted reference range: 80.0-99.0 fL. The reference range was not used to interpret this result as normal/abnormal. MONOCYTES (test code = 13021-4) 7.3 % NEUTROPHILS (test code = 37060-0) 57.3 % PLATELET COUNT (test code = 27070-0) 265 K/UL See_Comment [Automated messa ge] The system which generated this result transmitted reference range: 130-400 K/UL. The reference range was not used to interpret this result as normal/abnormal. RBC (test code = 74765-9) 4.85 M/UL See_Comment [Automated messa ge] The system which generated this result transmitted reference range: 4.50-6.10 M/UL. The reference range was not used to interpret this result as normal/abnormal. RDW (test code = 34286-5) 13.1 % See_Comment [Automated messa ge] The system which generated this result transmitted reference range: 11.5-15.0 %. The reference range was not used to interpret this result as normal/abnormal. WBC (test code = 49952-2) 9.1 K/UL See_Comment [Automated messa ge] The system which generated this result transmitted reference range: 3.5-11.0 K/UL. The reference range was not used to interpret this result as normal/abnormal. HEMOGLOBIN [id number] 00:00:00* Test Item Value Reference Range Interpretation Comme nts A1C (test code = 4548-4) 6.9 HEMOGLOBIN [id number] 00:00:00* Test Item Value Reference Range Interpretation Comme nts A1C (test code = 4548-4) 9.2 HEMOGLOBIN [id number] 00:00:00* Test Item Value Reference Range Interpretation Comme nts A1C (test code = 4548-4) 10.4 HEMOGLOBIN [id number] 00:00:00* Test Item Value Reference Range Interpretation Comme nts A1C (test code = 4548-4) 10.1 HEMOGLOBIN [id number] 00:00:00* Test Item Value Reference Range Interpretation Comme nts A1C (test code = 4548-4) 12.1
[2024-11-30] MEDS ORDERED: NITROGLYCERIN 0.4 MG/TAB SL ONE (06:42)
[2024-11-30] MEDS ORDERED: ASPIRIN 81 MG CHEWABLE TABLET ONE (06:48)
[2024-11-30 06:50] LABS: Absolute Lymphocytes (CBC) 2.6 K/uL (0.7-4.9); Hematocrit 45.4 % (39.6-49.0); Hemoglobin 16.0 g/dL (13.6-17.9); MCH 31.1 pg (27.0-35.0); MCHC 35.3 g/dL (32.0-36.0); MCV 88.2 fL (80-100); MPV 7.5 fL (7.6-11.3); Nucleated RBC Absolute Count 0.0 (0-0); Nucleated Red Blood Cells % 0.0 % (0-0); RBC Red Blood Cell Count 5.15 M/uL (4.33-5.43); White Blood Count 10.90 thou/uL (4.3-10.9)
[2024-11-30 07:13] LABS: ALT/SGPT 27 U/L (16-61); Albumin 3.8 g/dL (3.4-5.0); Albumin/Globulin Ratio 1.3 (1.1-1.8); Alkaline Phosphatase 69 U/L (45-117); Anion Gap 9.0 mEq/L (5.0-15.0); BUN Blood Urea Nitrogen 10 mg/dL (7-18); Bilirubin Indirect, Calculated 0.3 mg/dL (0.2-0.8); Globulin 2.9 g/dL (2.3-3.5); Glucose Level 177 mg/dL (74-106); Magnesium 1.7 mg/dL (1.6-2.4); NT PRO-BNP 49 pg/mL (<125); Potassium 4.0 mEq/L (3.5-5.1)
[2024-11-30 07:14] LABS: PT Prothrombin Time 10.7 SECONDS (10-13.0); Protime INR 0.95
[2024-11-30 07:16] LABS: AST/SGOT < 10 U/L (15-37); Troponin High Sensitivity < 3.0 pg/mL (<58.9)
--- NOTE | 2024-11-30 07:51 | RAD REPORT ---
EXAM: Chest Single View HISTORY: 49 years Male CHEST PAIN COMPARISON: 10/24/2020 FINDINGS: LUNGS/PLEURA: The lungs are clear. No pleural effusions or pneumothorax. No pulmonary edema. CARDIAC/MEDIASTINUM: The cardiac silhouette is within normal limits. UPPER ABDOMEN: No significant abnormality. BONES: No acute abnormality. LINES/TUBES/OTHER: N/A IMPRESSION: No evidence of acute cardiopulmonary disease.
--- NOTE | 2024-11-30 08:33 | ER ---
Nurse's Notes [facility] Name: Baldemar Lujan Age: 49 yrs Sex: Male : 1975 Arrival Date: 11/30/2024 Time: 06:25 Bed 4 Private MD: Roni Lino Diagnosis: Chest pain, unspecified Presentation: 11/30 06:33 Chief complaint: Patient states: I started having chest pain about 30 mins ago. Its bm8 coming in waves of pain but staying there pretty constannt. 06:33 Coronavirus screen: Vaccine status: Patient reports receiving the 2nd dose of the covid bm8 vaccine. Ebola Screen: Patient negative for fever greater than or equal to 101.5 degrees Fahrenheit, and additional compatible Ebola Virus Disease symptoms Patient denies exposure to infectious person. Patient denies travel to an Ebola-affected area in the 21 days before illness onset. No symptoms or risks identified at this time. Initial Sepsis Screen: Does the patient meet any 2 criteria? No. Patient's initial sepsis screen is negative. Does the patient have a suspected source of infection? No. Patient's initial sepsis screen is negative. Risk Assessment: Do you want to hurt yourself or someone else? Patient reports no desire to harm self or others. Onset of symptoms was November 30, 2024 at 06:00. 06:33 Method Of Arrival: Ambulatory bm8 06:33 Acuity: PHYLLIS 2 bm8 Triage Assessment: 06:33 General: Appears in no apparent distress. comfortable, Behavior is calm, cooperative, bm8 appropriate for age. 06:33 Pain: Complains of pain in anterior aspect of left upper chest Pain currently is 5 out bm8 of 10 on a pain scale. EENT: No deficits noted. No signs and/or symptoms were reported regarding the EENT system. Neuro: No deficits noted. Level of Consciousness is awake, alert, obeys commands, Oriented to person, place, time, situation, Appropriate for age. Cardiovascular: Reports chest pain, shortness of breath, Heart tones S1 S2 present Capillary refill < 3 seconds in bilateral fingers Patient's skin is warm and dry. Cardiovascular: Rhythm is sinus rhythm. Respiratory: Airway is patent Respiratory effort is even, unlabored, Respiratory pattern is regular, symmetrical, Breath sounds are clear bilaterally. GI: No deficits noted. No signs and/or symptoms were reported involving the gastrointestinal system. : No deficits noted. No signs and/or symptoms were reported regarding the genitourinary system. Derm: No deficits noted. No signs and/or symptoms reported regarding the dermatologic system. Musculoskeletal: No deficits noted. No signs and/or symptoms reported regarding the musculoskeletal system. Historical: - Allergies: 06:45 No Known Allergies; bm8 - Home Meds: 06:45 amlodipine 5 mg oral tablet 1 tab daily [Active]; aspirin 81 mg oral capsule 1 cap bm8 daily [Active]; Lipitor 80 mg oral tablet 1 tab daily [Active]; metformin 1,000 mg oral tablet 1 tab 2 times per day [Active]; metoprolol tartrate 50 mg oral tablet 1 tabs daily [Active]; Protonix 40 mg oral tablet, delayed release (enteric coated) 1 tab daily [Active]; fenofibrate oral 145 mg 1 cap daily [Active]; Mounjaro 15 mg/0.5 mL subcutaneous Pen Injector 15 mg every week [Active]; Farxiga 10 mg oral tablet 1 tab daily [Active]; - PMHx: 06:45 Anxiety; Diabetes - NIDDM; Hypertension; bm8 - PSHx: 06:45 None; bm8 - Immunization history:: Adult Immunizations up to date. - Infectious Disease History:: Denies. - Social history:: Smoking status: Patient reports the use of cigarette tobacco products, smokes one pack cigarettes per day. Patient uses alcohol, occasionally. Patient/guardian denies using street drugs. Screenin:56 [facility] ED Fall Risk Assessment (Adult) History of falling in the last 3 months, bm8 including since admission No falls in past 3 months (0 pts) Confusion or Disorientation No (0 pts) Intoxicated or Sedated No (0 pts) Impaired Gait No (0 pts) Mobility Assist Device Used No (0 pt) Altered Elimination No (0 pt) Score/Fall Risk Level 0 - 2 = Low Risk Oriented to surroundings, Maintained a safe environment, Educated pt \T\ family on fall prevention, incl call for assistance when getting out of bed, Assessed \T\ reinforced patient's understanding of fall precautions, Hourly rounding (assess needs \T\ fall precautionary measures) done, Used ambulatory aids as needed (educated on \T\ assisted with), Used gait belt as appropriate. Abuse screen: Denies threats or abuse. Nutritional screening: No deficits noted. Tuberculosis screening: No symptoms or risk factors identified. Assessment: 07:40 Reassessment: Patient appears in no apparent distress at this time. Patient is alert, bp oriented x 3, equal unlabored respirations, skin warm/dry/pink. 08:30 Reassessment: Patient denies pain at this time. Patient states feeling better. Patient hb states symptoms have improved. Vital Signs: 06:33 BP 166 / 113; Pulse 71; Resp 16; Temp 97.58; Pulse Ox 99% ; Weight 102.97 kg; Height 6 bm8 ft. 1 in. ; Pain 5/10; 07:40 BP 130 / 87; Pulse 66; Resp 11; Pulse Ox 98% ; bp 08:30 BP 126 / 84; Pulse 64; Resp 16; Pulse Ox 99% on NC; Pain 0/10; hb 06:33 Body Mass Index 29.95 (102.97 kg, 185.42 cm) bm8 06:33 Pain Scale: Adult bm8 08:30 Pain Scale: Adult hb [place] Coma Score: 06:56 Eye Response: spontaneous(4). Motor Response: obeys commands(6). Verbal Response: bm8 oriented(5). Total: 15. ED Course: 06:27 Patient arrived in ED. jj6 06:27 Roni Lino DO is Private Physician. jj6 06:33 Arm band placed on right wrist. bm8 06:34 Marilyn Lino MD is Attending Physician. sp3 06:35 EKG done, by ED staff, reviewed by Marilyn Lino MD. Inserted saline lock: 18 gauge in zm left antecubital area, using aseptic technique. Blood collected. Flushed with 10 mL NS. 06:43 Yared Wolf, RN is Primary Nurse. bm8 06:45 Triage completed. bm8 06:50 Basic Metabolic Panel Sent. zm 06:50 CBC with Diff Sent. zm 06:50 LFT's Sent. zm 06:50 NT PRO-BNP Sent. zm 06:50 Magnesium Sent. zm 06:50 PT-INR Sent. zm 06:50 Troponin HS Sent. zm 06:56 No provider procedures requiring assistance completed. Patient maintains SpO2 bm8 saturation greater than 95% on room air. 06:56 Patient has correct armband on for positive identification. Placed in gown. Bed in low bm8 position. Call light in reach. Side rails up X 1. Adult w/ patient. Client placed on continuous cardiac and pulse oximetry monitoring. NIBP monitoring applied. carpenter rough on. Pulse ox on. NIBP on. Door closed. Noise minimized. Pillow given. Verbal reassurance given. Head of bed elevated. 07:04 Primary Nurse role handed off by Yared Wolf, RN bp 07:04 Luis Felipe Vela RN is Primary Nurse. bp 07:04 Attending Physician role handed off by Marilyn Lino MD ms3 07:04 Bulmaro Garnica DO is Attending Physician. ms3 07:05 Report given to EDUAR tolbert. zm 07:44 XRAY Chest (1 view) In Process Unspecified. EDMS 07:56 Repeat lab(s) drawn. sent to lab. hb 07:58 Troponin High Sensitivity Sent. hb 07:58 Provided Education on: call light . hb 08:32 Remi Elizabeth MD is Referral Physician. ms3 08:49 IV discontinued, intact, bleeding controlled, No redness/swelling at site. Pressure hb dressing applied. Administered Medications: 06:47 Drug: Nitroglycerin Sublingual 0.4 mg Sublingual once Route: Sublingual; zm 07:58 Follow up: Response: No adverse reaction hb 06:50 Drug: Aspirin PO Chewable Tablet 324 mg PO once; 81 mg tablets x 4 Route: PO; zm 07:58 Follow up: Response: No adverse reaction hb Medication: 06:56 VIS not applicable for this client. bm8 Outcome: 08:32 Discharge ordered by MD. ms3 08:49 Discharged to home ambulatory, hb 08:49 Condition: stable 08:49 Discharge instructions given to patient, Instructed on discharge instructions, follow up and referral plans. medication usage, Demonstrated understanding of instructions, follow-up care, medications, 08:56 Patient left the ED. hb Signatures: Dispatcher [employer] EDMS Juanita Booth RN RN hb Luis Felipe Vela, EDUAR RN bp Bulmaro Garnica DO DO ms3 Marilyn Lino MD MD sp3 Maria Alejandra Matthews6 Brigid Sinha RN RN Yared Wolf, RN RN bm8
--- NOTE | 2024-11-30 08:33 | EDPHYS ---
Physician Documentation [facility] Name: Baldemar Lujan Age: 49 yrs Sex: Male : 1975 Arrival Date: 11/30/2024 Time: 06:25 Bed 4 Private MD: Roni Lino ED Physician Bulmaro Garnica HPI: 11/30 06:41 This 49 yrs old Male presents to ER via Unassigned with complaints of Chest Pain. 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 Pain is described as substernal in nature with mild shortness of breath. He denies any headache, neck pain, back pain, abdominal pain, nausea, vomiting, diarrhea, syncope, near syncope, rash, known sick contacts, travel history, prior DVT or PE, or any other signs or symptoms on ROS at this time. Patient has not had a stress test or angiography in the past. PCP is Roni Lino.. Historical: - Allergies: 06:45 No Known Allergies; bm8 - Home Meds: 06:45 amlodipine 5 mg oral tablet 1 tab daily [Active]; aspirin 81 mg oral capsule 1 cap bm8 daily [Active]; Lipitor 80 mg oral tablet 1 tab daily [Active]; metformin 1,000 mg oral tablet 1 tab 2 times per day [Active]; metoprolol tartrate 50 mg oral tablet 1 tabs daily [Active]; Protonix 40 mg oral tablet, delayed release (enteric coated) 1 tab daily [Active]; fenofibrate oral 145 mg 1 cap daily [Active]; Mounjaro 15 mg/0.5 mL subcutaneous Pen Injector 15 mg every week [Active]; Farxiga 10 mg oral tablet 1 tab daily [Active]; - PMHx: 06:45 Anxiety; Diabetes - NIDDM; Hypertension; bm8 - PSHx: 06:45 None; bm8 - Immunization history:: Adult Immunizations up to date. - Infectious Disease History:: Denies. - Social history:: Smoking status: Patient reports the use of cigarette tobacco products, smokes one pack cigarettes per day. Patient uses alcohol, occasionally. Patient/guardian denies using street drugs. ROS: 06:42 Constitutional: Negative for fever, chills, and weight loss, Eyes: Negative for injury, sp3 pain, redness, and discharge, Neck: Negative for injury, pain, and swelling, Respiratory: Negative for shortness of breath, cough, wheezing, and pleuritic chest pain, Abdomen/GI: Negative for abdominal pain, nausea, vomiting, diarrhea, and constipation, Back: Negative for injury and pain, MS/Extremity: Negative for injury and deformity, Skin: Negative for injury, rash, and discoloration, Neuro: Negative for headache, weakness, numbness, tingling, and seizure, Psych: Negative for depression, anxiety, suicide ideation, homicidal ideation, and hallucinations, Allergy/Immunology: Negative for hives, rash, and allergies, Endocrine: Negative for neck swelling, polydipsia, polyuria, polyphagia, and marked weight changes, Hematologic/Lymphatic: Negative for swollen nodes, abnormal bleeding, and unusual bruising, 06:42 All other systems are negative, Exam: 06:43 Constitutional: This is a well developed, well nourished patient who is awake, alert, sp3 and in no acute distress. Head/Face: Normocephalic, atraumatic. Eyes: Pupils equal round and reactive to light, extra-ocular motions intact. Lids and lashes normal. Conjunctiva and sclera are non-icteric and not injected. Cornea within normal limits. Periorbital areas with no swelling, redness, or edema. Neck: Trachea midline, no thyromegaly or masses palpated, and no cervical lymphadenopathy. Supple, full range of motion without nuchal rigidity, or vertebral point tenderness. No Meningismus. Chest/axilla: Normal chest wall appearance and motion. Nontender with no deformity. No lesions are appreciated. Cardiovascular: Regular rate and rhythm with a normal S1 and S2. No gallops, murmurs, or rubs. Normal PMI, no JVD. No pulse deficits. Respiratory: Lungs have equal breath sounds bilaterally, clear to auscultation and percussion. No rales, rhonchi or wheezes noted. No increased work of breathing, no retractions or nasal flaring. Abdomen/GI: Soft, non-tender, with normal bowel sounds. No distension or tympany. No guarding or rebound. No evidence of tenderness throughout. Back: No spinal tenderness. No costovertebral tenderness. Full range of motion. Skin: Warm, dry with normal turgor. Normal color with no rashes, no lesions, and no evidence of cellulitis. MS/ Extremity: Pulses equal, no cyanosis. Neurovascular intact. Full, normal range of motion. Neuro: Awake and alert, GCS 15, oriented to person, place, time, and situation. Cranial nerves II-XII grossly intact. Motor strength 5/5 in all extremities. Sensory grossly intact. Cerebellar exam normal. Normal gait. Psych: Awake, alert, with orientation to person, place and time. Behavior, mood, and affect are within normal limits. 06:43 ECG was reviewed by the Attending Physician. EKG demonstrates normal sinus rhythm at 70 bpm with normal intervals, normal QRS, normal axis and nonspecific diffuse ST/T changes without evidence of acute ischemia. Vital Signs: 06:33 BP 166 / 113; Pulse 71; Resp 16; Temp 97.58; Pulse Ox 99% ; Weight 102.97 kg; Height 6 bm8 ft. 1 in. ; Pain 5/10; 07:40 BP 130 / 87; Pulse 66; Resp 11; Pulse Ox 98% ; bp 08:30 BP 126 / 84; Pulse 64; Resp 16; Pulse Ox 99% on NC; Pain 0/10; hb 06:33 Body Mass Index 29.95 (102.97 kg, 185.42 cm) bm8 06:33 Pain Scale: Adult bm8 08:30 Pain Scale: Adult hb [place] Coma Score: 06:56 Eye Response: spontaneous(4). Motor Response: obeys commands(6). Verbal Response: bm8 oriented(5). Total: 15. MDM: 06:34 Medical Screening Exam initiated sp3 06:43 ED course: 49-year-old male with PMH above now with chest pain approximately 1 hour sp3 prior to arrival. Differential diagnosis includes acute coronary syndrome, gastritis, GERD, other thoracic process including bronchitis, pneumonia or pleurisy. I am not highly suspicious of DVT or PE. EKG is without ischemic changes. Chest x-ray and initial blood work pending. Patient will be signed out to daytime physician Dr. Garnica for final reevaluation and disposition.. 07:05 Differential diagnosis: abnormal EKG, acute myocardial infarction, acute pericarditis, ms3 anxiety, coronary artery disease chest wall pain, costochondritis. The patient was given aspirin in the Emergency Department. Transition of care: Care assumed from Marilyn Lino MD. 07:07 ED course: This is a 49-year-old male who presented to the emergency department for ms3 chest pain 1 hour prior to arrival. Patient is currently pending labs and chest x-ray.. 07:58 Independent interpretation of the following test(s) in the Emergency Department EKG: ms3 See my EKG interpretation above X-Ray: My interpretation is CXR image reviewed by me does not reveal PTX or PNA. 08:28 HEART Score: History: Slightly Suspicious (0), ECG: Normal (0), Age: > 45 and < 65 ms3 years (1), Risk Factors: 1 or 2 risk factors (1), [Hypertension] [DM] Troponin: < or = 1 x Normal Limit (0), Total Score = 2. Data reviewed: vital signs, nurses notes, lab test result(s), EKG, radiologic studies, and as a result, I will discharge patient. I considered the following discharge prescriptions or medication management in the emergency department Medications were administered in the Emergency Department. See MAR. Counseling: I had a detailed discussion with the patient and/or guardian regarding the historical points, exam findings, and any diagnostic results supporting the discharge/admit diagnosis, lab results, radiology results, the need for outpatient follow up, to return to the emergency department if symptoms worsen or persist or if there are any questions or concerns that arise at home. ED course: Discussed negative troponin x 2, EKG without acute ischemia, chest x-ray findings with patient. Patient to follow-up with Dr. Elizabeth in 2 to 3 days. All questions were answered. Return precautions discussed include worsening symptoms, or any other concerns. On reevaluation patient is alert and orient x 4, no apparent distress, nontoxic-appearing, speaking full sentences.. 11/30 06:34 Order name: Basic Metabolic Panel; Complete Time: : sp3 11/30 06:34 Order name: CBC with Diff; Complete Time: 07: sp3 11/30 06:34 Order name: LFT's; Complete Time: : sp3 11/30 06:34 Order name: Magnesium; Complete Time: sp3 11/30 06:34 Order name: NT PRO-BNP; Complete Time: 07:19 sp3 11/30 06:34 Order name: PT-INR; Complete Time: 07:19 sp3 11/30 06:34 Order name: Troponin HS; Complete Time: 07:19 sp3 11/30 07:47 Order name: Troponin High Sensitivity; Complete Time: 08:28 ms3 11/30 06:34 Order name: XRAY Chest (1 view); Complete Time: 07:56 sp3 11/30 06:34 Order name: EKG; Complete Time: 06:34 sp3 11/30 06:34 Order name: Cardiac monitoring; Complete Time: 06:50 sp3 11/30 06:34 Order name: EKG - Nurse/Tech; Complete Time: 06:50 sp3 11/30 06:34 Order name: IV Saline Lock; Complete Time: 06:50 sp3 11/30 06:34 Order name: Labs collected and sent; Complete Time: 06:50 sp3 11/30 06:34 Order name: O2 Per Protocol; Complete Time: 06:50 sp3 11/30 06:34 Order name: O2 Sat Monitoring; Complete Time: 06:50 sp3 Administered Medications: 06:47 Drug: Nitroglycerin Sublingual 0.4 mg Sublingual once Route: Sublingual; zm 07:58 Follow up: Response: No adverse reaction hb 06:50 Drug: Aspirin PO Chewable Tablet 324 mg PO once; 81 mg tablets x 4 Route: PO; zm 07:58 Follow up: Response: No adverse reaction hb Disposition Summary: 11/30/24 08:32 Discharge Ordered Notes: Location: Home ms3 Condition: Stable ms3 Diagnosis - Chest pain, unspecified ms3 Followup: ms3 - With: Remi Elizabeth MD - When: 2 - 3 days - Reason: Recheck today's complaints Discharge Instructions: - Discharge Summary Sheet ms3 - Nonspecific Chest Pain, Adult ms3 Forms: - Medication Reconciliation Form ms3 - Antibiotic Education ms3 - Prescription Opioid Use ms3 - Patient Portal Instructions ms3 - Leadership Thank You Letter ms3 Signatures: Dispatcher [employer] EDBulmaro Tariq DO DO ms3 Marilyn Lino MD MD sp3 Brigid Sinha RN RN zm Yared Wolf RN RN bm8 Juanita Booth RN hb Corrections: (The following items were deleted from the chart) 06:43 06:41 49-year-old male with history of hypertension and diabetes with no documented CAD sp3 now presents to the ED with chief complaint chest pain that started approximately 1 hour prior to arrival while he was sitting in the parking lot waiting 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 Pain is described as substernal in nature with mild shortness of breath. He denies any headache, neck pain, back pain, abdominal pain, nausea, vomiting, diarrhea, syncope, near syncope, rash, known sick contacts, travel history, prior DVT or PE, or any other signs or symptoms on ROS at this time.. sp3 07:06 06:43 Data reviewed: vital signs, nurses notes, old medical records, lab test ms3 result(s), EKG, radiologic studies, sp3
[2024-11-30 13:36] VITALS: BP 126/84; O2SAT 99
== END 2024-11-30 08:56 | disposition home or self-care (01) ==
LOC: ER 06:25
DX: R07.9 Chest pain, unspecified (principal); I10 Essential (primary) hypertension; F41.9 Anxiety disorder, unspecified; E11.9 Type 2 diabetes mellitus without complications; F17.210 Nicotine dependence, cigarettes, uncomplicated; Z79.82 Long term (current) use of aspirin
CPT/HCPCS: 36415; 71045; 80048; 80076; 83735; 83880; 84484; 85025; 85610; 93005; 99285